=== PATIENT | male | born 1945 | race Caucasian/White ===

== ENCOUNTER 2021-05-18 09:19 | Inpatient (IN) ==
[2021-05-18] MEDS ORDERED: methylPREDNISolone SOD SUC 125 MG/2 ML VIAL IV STA (09:29)
[2021-05-18] MEDS ORDERED: MIDAZOLAM 2 MG/2 ML VIAL IV STA (09:30)
[2021-05-18] MEDS ORDERED: ALBUTEROL NEB SOLN 5 MG/ML 20 ML/BOTTLE CONT NEB SCH (09:30)
[2021-05-18] MEDS ORDERED: MIDAZOLAM 2 MG/2 ML VIAL ONE (09:35)
[2021-05-18 09:38] LABS: Basophils # 0.2 10*3/uL (0.0-0.2); Basophils % 1.4 % (0.0-0.8); Eosinophils # 0.2 10*3/uL (0.0-0.87); Eosinophils % 1.4 % (0.00-10.9); Hematocrit 46.3 VOL% (42.0-52.0); Hemoglobin 14.2 GM/DL (14.0-18.0); Immature Granulocytes % 0.5 %; Immature Granulocytes Absolute 0.07 #; Lymphocytes # 5.6 10*3/uL (1.4-4.0); Mean Corpuscular HGB Conc 30.7 GM/DL (32-36); Mean Corpuscular Volume 94.5 FL (87-102); Mean Platelet Volume 11.7 FL (9.6-12.0); Neutrophils % 47.7 % (38.7-73.9); Red Cell Distribution Width 13.3 % (9.3-17.3); White Blood Count 13.1 T/CUMM (4-12)
[2021-05-18 09:40] LABS: Platelet Count 65 T/CUMM (130-400)
[2021-05-18 09:41] LABS: ABG Base Excess -8.7 MMOL/L (-2.5-2.5); ABG HCO3 17.6 MMOL/L (20-26); ABG PCO2 58.8 MM HG (35-48); ABG TCO2 19.1 MMOL/L (23-27)
[2021-05-18] MEDS ORDERED: MORPHINE 2 MG/1 ML SYRINGE IV STA (09:44)
[2021-05-18] MEDS ORDERED: FUROSEMIDE 40 MG/4 ML VIAL IV STA (09:44)
[2021-05-18] MEDS ORDERED: MORPHINE 4 MG/1 ML VIAL ONE (09:50)
[2021-05-18 09:51] LABS: ABG PH 7.168 (7.35-7.45)
[2021-05-18 09:53] LABS: Mucus,Urine Occasional /LPF (Occasional); RBC,Urine 48 /HPF (0-4); Squamous Epithelial Cell,Urine Occasional /HPF (0-10)
[2021-05-18 09:55] LABS: Glucose,Urine (UA) Negative (Negative); Protein,Urine 100 MG/DL; Urine Appearance Clear (Clear); Urine Color Yellow (Yellow); Urine Specific Gravity > 1.030 (1.001-1.035)
[2021-05-18 09:56] LABS: Bilirubin,Urine Negative (Negative); Blood, Urine Moderate mg/dL (Negative); Ketones,Urine Negative (Negative); Nitrite,Urine Negative (Negative); Urine Urobilinogen 0.2 EU/DL (<2.0)
[2021-05-18] MEDS: MIDAZOLAM 100 MG in SODIUM CHLORIDE 0.9% 80 ML IV PRN ×2 (10:01→22:15)
[2021-05-18] MEDS ORDERED: ROCURONIUM 100 MG/10 ML VIAL IV ONE (10:15)
[2021-05-18] MEDS ORDERED: ROCURONIUM 100 MG/10 ML VIAL IV STA (10:18)
[2021-05-18] MEDS ORDERED: SODIUM BICARBONATE 50 MEQ/50 ML SYRINGE IV ONE (10:37)
[2021-05-18] MEDS ORDERED: NOREPINEPHRINE 4 MG/4 ML VIAL IV ONE (10:37)
[2021-05-18] MEDS ORDERED: SODIUM BICARBONATE 50 MEQ/50 ML VIAL IV STA (10:38)
[2021-05-18] MEDS: NOREPINEPHRINE 8 MG in SODIUM CHLORIDE 0.9% 242 ML IV PRN (10:46)
[2021-05-18 11:08] LABS: Albumin 2.9 G/DL (3.4-5.0); Bilirubin,Total 0.5 MG/DL (0.20-1.00); Calcium 8.6 MG/DL (8.5-10.1); Potassium 3.6 MMOL/L (3.5-5.1); Total Protein 6.6 G/DL (6.4-8.2)
[2021-05-18] MEDS ORDERED: GLUCAGON 1 MG VIAL IM PRN (11:42)
[2021-05-18] MEDS ORDERED: MEPERIDINE 50 MG/1 ML VIAL IV PRN (11:51)
[2021-05-18] MEDS ORDERED: MAGNESIUM SULF RIDER 1 GM/100 ML PREMIX IV PRN (12:00)
[2021-05-18] MEDS: fentaNYL INJ 1,250 MCG in SODIUM CHLORIDE 0.9% 225 ML IV PRN ×2 (12:15→22:14)
[2021-05-18 12:23] LABS: INR 2.4; Partial Thromboplastin Time 31.3 SECS (23.8-32.1)
[2021-05-18 12:24] LABS: Bacteria,Urine Occasional /HPF (Few); Hyaline Casts,Urine 1 /LPF (0-3); Mucus,Urine Occasional /LPF (Occasional); RBC,Urine 33 /HPF (0-4)
[2021-05-18 12:26] LABS: PT Patient Result 24.7 SECS (10.5-12.0)
[2021-05-18 12:37] LABS: Bilirubin,Urine Negative (Negative); Blood, Urine Moderate mg/dL (Negative); Glucose,Urine (UA) Negative (Negative); Ketones,Urine Negative (Negative); Nitrite,Urine Negative (Negative); Protein,Urine Negative; Urine Appearance Clear (Clear); Urine Color Light Yellow (Yellow); Urine Specific Gravity >= 1.030 (1.001-1.035); Urine Urobilinogen 0.2 EU/DL (<2.0); Urine pH 6.5 (4.5-8.0)
[2021-05-18 12:53] LABS: ABG Base Excess 2.3 MMOL/L (-2.5-2.5); ABG HCO3 26.5 MMOL/L (20-26); ABG Oxygen Saturation 99.4 % (95-100); ABG PCO2 40.9 MM HG (35-48); ABG PH 7.425 (7.35-7.45); ABG TCO2 23.1 MMOL/L (23-27)
[2021-05-18] MEDS: FAMOTIDINE 20 MG/2 ML VIAL IV SCH ×2 (13:24→22:39)
[2021-05-18] MEDS: ALBUTEROL/IPRATROPIUM 3 ML NEB RESP TX SCH ×2 (13:30→18:57)
[2021-05-18] MEDS: CISATRACURIUM 10 MG/5 ML VIAL IV PRN (14:10)
[2021-05-18 14:43] LABS: Albumin 2.7 G/DL (3.4-5.0); Bilirubin,Total 0.5 MG/DL (0.20-1.00); Calcium 7.6 MG/DL (8.5-10.1); Osmolality,Calculated 283.5 MOS/KG (273-304); Potassium 3.6 MMOL/L (3.5-5.1); Total Protein 6.2 G/DL (6.4-8.2)
[2021-05-18] MEDS ORDERED: ASPIRIN CHEW 81 MG TABLET PO ONE (14:56)
[2021-05-18] MEDS: INSULIN REGULAR 100 UNIT/ML IV SCH ×3 (15:42→20:25)
[2021-05-18] MEDS: FUROSEMIDE 40 MG/4 ML VIAL IV SCH (15:42)
[2021-05-18] MEDS: MINERAL OIL/PETROLATUM OPH OINT 3.5 GM TUBE BOTH EYES SCH ×2 (15:42→20:28)
[2021-05-18] MEDS: POTASSIUM CHLORIDE RIDER 20 MEQ/100 ML PREMIX IV PRN ×2 (15:42→18:25)
[2021-05-18 17:59] LABS: Basophils % 0.3 % (0.0-0.8); Hematocrit 41.5 VOL% (42.0-52.0); Hemoglobin 13.8 GM/DL (14.0-18.0); Immature Granulocytes % 0.3 %; Immature Granulocytes Absolute 0.02 #; Lymphocytes # 0.5 10*3/uL (1.4-4.0); Lymphocytes % 7.6 % (21.2-54.2); Mean Corpuscular HGB Conc 33.3 GM/DL (32-36); Mean Platelet Volume 10.1 FL (9.6-12.0); Monocytes % 3.9 % (1.7-12.7); Neutrophils % 87.9 % (38.7-73.9); Platelet Count 173 T/CUMM (130-400); Red Blood Count 4.77 MC/CUMM (3.8-5.5); Red Cell Distribution Width 13.2 % (9.3-17.3); White Blood Count 6.2 T/CUMM (4-12)
[2021-05-18] MEDS: methylPREDNISolone SOD SUC 40 MG/1 ML VIAL IV SCH (18:03)
[2021-05-18 18:09] LABS: INR 2.5; Partial Thromboplastin Time 33.4 SECS (23.8-32.1)
[2021-05-18 18:11] LABS: PT Patient Result 26.3 SECS (10.5-12.0)
[2021-05-18 18:13] LABS: Calcium 7.9 MG/DL (8.5-10.1); Osmolality,Calculated 278.8 MOS/KG (273-304); Potassium 2.8 MMOL/L (3.5-5.1)
[2021-05-18 23:16] LABS: Bilirubin,Urine Negative (Negative); Blood, Urine Large mg/dL (Negative); Glucose,Urine (UA) Negative (Negative); Hyaline Casts,Urine 3 /LPF (0-3); Ketones,Urine Negative (Negative); Mucus,Urine Occasional /LPF (Occasional); Nitrite,Urine Negative (Negative); Protein,Urine Trace MG/DL; RBC,Urine 76 /HPF (0-4); Squamous Epithelial Cell,Urine Occasional /HPF (0-10); Urine Appearance CLEAR (Clear); Urine Color Yellow (Yellow); Urine Specific Gravity 1.025 (1.001-1.035); Urine Urobilinogen 0.2 EU/DL (<2.0); Urine pH 5.5 (4.5-8.0)
[2021-05-19 00:27] LABS: INR 2.5; Partial Thromboplastin Time 34.7 SECS (23.8-32.1)
[2021-05-19 00:29] LABS: PT Patient Result 25.9 SECS (10.5-12.0)
[2021-05-19] MEDS: INSULIN REGULAR 100 UNIT/ML IV SCH ×8 (00:36→22:34)
[2021-05-19 00:39] LABS: Basophils % 0.2 % (0.0-0.8); Hematocrit 41.3 VOL% (42.0-52.0); Hemoglobin 13.8 GM/DL (14.0-18.0); Immature Granulocytes % 1.4 %; Immature Granulocytes Absolute 0.06 #; Lymphocytes # 0.5 10*3/uL (1.4-4.0); Lymphocytes % 11.3 % (21.2-54.2); Mean Corpuscular HGB Conc 33.4 GM/DL (32-36); Mean Corpuscular Volume 86.9 FL (87-102); Mean Platelet Volume 10.4 FL (9.6-12.0); Monocytes % 2.9 % (1.7-12.7); Neutrophils % 84.2 % (38.7-73.9); Platelet Count 166 T/CUMM (130-400); Red Blood Count 4.75 MC/CUMM (3.8-5.5); Red Cell Distribution Width 13.1 % (9.3-17.3); White Blood Count 4.4 T/CUMM (4-12)
[2021-05-19] MEDS: ALBUTEROL/IPRATROPIUM 3 ML NEB RESP TX SCH ×4 (00:45→19:48)
[2021-05-19 01:13] LABS: Calcium 7.7 MG/DL (8.5-10.1); Osmolality,Calculated 281.5 MOS/KG (273-304); Potassium 3.2 MMOL/L (3.5-5.1)
[2021-05-19] MEDS: methylPREDNISolone SOD SUC 40 MG/1 ML VIAL IV SCH ×3 (01:42→18:04)
[2021-05-19] MEDS: POTASSIUM CHLORIDE RIDER 20 MEQ/100 ML PREMIX IV PRN ×3 (01:44→12:52)
[2021-05-19 03:51] LABS: ABG Base Excess 1.8 MMOL/L (-2.5-2.5); ABG Oxygen Saturation 99.6 % (95-100); ABG PCO2 32.4 MM HG (35-48); ABG PH 7.487 (7.35-7.45); ABG TCO2 21.2 MMOL/L (23-27)
[2021-05-19] MEDS: fentaNYL INJ 1,250 MCG in SODIUM CHLORIDE 0.9% 225 ML IV PRN ×5 (03:56→23:59)
[2021-05-19 04:18] LABS: Risk Ratio 2.44; VLDL Cholesterol 13.2 MG/DL
[2021-05-19 06:25] LABS: Basophils % 0.2 % (0.0-0.8); Hematocrit 39.2 VOL% (42.0-52.0); Hemoglobin 13.1 GM/DL (14.0-18.0); Immature Granulocytes % 0.4 %; Immature Granulocytes Absolute 0.02 #; Lymphocytes # 0.6 10*3/uL (1.4-4.0); Lymphocytes % 10.4 % (21.2-54.2); Mean Corpuscular HGB Conc 33.4 GM/DL (32-36); Mean Corpuscular Volume 86.2 FL (87-102); Mean Platelet Volume 10.3 FL (9.6-12.0); Monocytes % 2.6 % (1.7-12.7); Neutrophils % 86.4 % (38.7-73.9); Platelet Count 166 T/CUMM (130-400); Red Blood Count 4.55 MC/CUMM (3.8-5.5); Red Cell Distribution Width 13.2 % (9.3-17.3); White Blood Count 5.5 T/CUMM (4-12)
[2021-05-19] MEDS: LEVOTHYROXINE 75 MCG TABLET PO SCH (06:31)
[2021-05-19 06:36] LABS: INR 2.7; Partial Thromboplastin Time 35.9 SECS (23.8-32.1)
[2021-05-19 06:37] LABS: Calcium 7.6 MG/DL (8.5-10.1); Osmolality,Calculated 284.4 MOS/KG (273-304); Potassium 3.3 MMOL/L (3.5-5.1)
[2021-05-19 06:46] LABS: PT Patient Result 28.1 SECS (10.5-12.0)
[2021-05-19] MEDS: MIDAZOLAM 100 MG in SODIUM CHLORIDE 0.9% 80 ML IV PRN ×2 (08:00→17:30)
[2021-05-19] MEDS: FUROSEMIDE 40 MG/4 ML VIAL IV SCH ×2 (08:55→16:03)
[2021-05-19] MEDS: MINERAL OIL/PETROLATUM OPH OINT 3.5 GM TUBE BOTH EYES SCH ×3 (09:10→21:07)
[2021-05-19] MEDS: ASPIRIN CHEW 81 MG TABLET PO SCH (09:10)
[2021-05-19] MEDS: FAMOTIDINE 20 MG/2 ML VIAL IV SCH ×2 (10:06→22:45)
[2021-05-19 11:18] LABS: Basophils % 0.2 % (0.0-0.8); Hematocrit 39.4 VOL% (42.0-52.0); Immature Granulocytes % 0.3 %; Immature Granulocytes Absolute 0.02 #; Lymphocytes # 0.5 10*3/uL (1.4-4.0); Lymphocytes % 8.8 % (21.2-54.2); Mean Corpuscular Volume 86.4 FL (87-102); Mean Platelet Volume 10.2 FL (9.6-12.0); Monocytes % 3.6 % (1.7-12.7); Neutrophils % 87.1 % (38.7-73.9); Platelet Count 178 T/CUMM (130-400); Red Blood Count 4.56 MC/CUMM (3.8-5.5); Red Cell Distribution Width 13.2 % (9.3-17.3); White Blood Count 5.9 T/CUMM (4-12)
[2021-05-19 11:30] LABS: INR 2.9; Partial Thromboplastin Time 37.5 SECS (23.8-32.1)
[2021-05-19 12:02] LABS: PT Patient Result 30.4 SECS (10.5-12.0)
[2021-05-19 12:06] LABS: Calcium 7.6 MG/DL (8.5-10.1); Osmolality,Calculated 284.4 MOS/KG (273-304); Potassium 3.3 MMOL/L (3.5-5.1)
[2021-05-19] MEDS ORDERED: POTASSIUM CHLORIDE RIDER 10 MEQ/100 ML PREMIX IV PRN (16:00)
[2021-05-19 17:42] LABS: Basophils % 0.1 % (0.0-0.8); Hematocrit 37.9 VOL% (42.0-52.0); Hemoglobin 12.6 GM/DL (14.0-18.0); Immature Granulocytes % 0.3 %; Immature Granulocytes Absolute 0.02 #; Lymphocytes # 0.6 10*3/uL (1.4-4.0); Lymphocytes % 8.5 % (21.2-54.2); Mean Corpuscular HGB Conc 33.2 GM/DL (32-36); Mean Corpuscular Volume 86.1 FL (87-102); Mean Platelet Volume 10.4 FL (9.6-12.0); Monocytes % 3.3 % (1.7-12.7); Neutrophils % 87.8 % (38.7-73.9); Platelet Count 168 T/CUMM (130-400); Red Cell Distribution Width 13.2 % (9.3-17.3); White Blood Count 7.3 T/CUMM (4-12)
[2021-05-19 17:52] LABS: INR 3.2; Partial Thromboplastin Time 38.6 SECS (23.8-32.1)
[2021-05-19 17:53] LABS: PT Patient Result 33.1 SECS (10.5-12.0)
[2021-05-19 18:10] LABS: Osmolality,Calculated 285.4 MOS/KG (273-304); Potassium 3.4 MMOL/L (3.5-5.1)
[2021-05-19 18:44] LABS: Albumin 2.4 G/DL (3.4-5.0); Bilirubin,Direct 0.11 MG/DL (0.0-0.20); Bilirubin,Indirect 0.4 MG/DL (0.0-1.0); Bilirubin,Total 0.5 MG/DL (0.20-1.00); Total Protein 5.5 G/DL (6.4-8.2)
[2021-05-19] MEDS: CISATRACURIUM 10 MG/5 ML VIAL IV PRN (22:49)
[2021-05-20] MEDS: INSULIN REGULAR 100 UNIT/ML IV SCH ×3 (00:21→05:21)
[2021-05-20 00:29] LABS: INR 3.3; Partial Thromboplastin Time 37.9 SECS (23.8-32.1)
[2021-05-20] MEDS: ALBUTEROL/IPRATROPIUM 3 ML NEB RESP TX SCH ×4 (00:30→19:37)
[2021-05-20 00:31] LABS: PT Patient Result 34.3 SECS (10.5-12.0)
[2021-05-20 00:40] LABS: Basophils % 0.1 % (0.0-0.8); Hematocrit 41.3 VOL% (42.0-52.0); Hemoglobin 13.6 GM/DL (14.0-18.0); Immature Granulocytes % 0.5 %; Immature Granulocytes Absolute 0.06 #; Lymphocytes # 0.7 10*3/uL (1.4-4.0); Lymphocytes % 6.4 % (21.2-54.2); Mean Corpuscular HGB Conc 32.9 GM/DL (32-36); Mean Corpuscular Volume 87.3 FL (87-102); Mean Platelet Volume 10.6 FL (9.6-12.0); Monocytes % 3.5 % (1.7-12.7); Neutrophils % 89.5 % (38.7-73.9); Platelet Count 199 T/CUMM (130-400); Red Blood Count 4.73 MC/CUMM (3.8-5.5); Red Cell Distribution Width 13.3 % (9.3-17.3); White Blood Count 11.6 T/CUMM (4-12)
[2021-05-20 01:40] LABS: Calcium 7.9 MG/DL (8.5-10.1); Osmolality,Calculated 287.4 MOS/KG (273-304); Potassium 3.4 MMOL/L (3.5-5.1)
[2021-05-20] MEDS: fentaNYL INJ 1,250 MCG in SODIUM CHLORIDE 0.9% 225 ML IV PRN ×6 (01:50→23:00)
[2021-05-20 02:27] LABS: ABG Base Excess 1.3 MMOL/L (-2.5-2.5); ABG HCO3 25.6 MMOL/L (20-26); ABG Oxygen Saturation 99.6 % (95-100); ABG PCO2 34.1 MM HG (35-48); ABG PH 7.463 (7.35-7.45); ABG TCO2 21.2 MMOL/L (23-27)
[2021-05-20 02:30] LABS: Basophils % 0.1 % (0.0-0.8); Hematocrit 38.2 VOL% (42.0-52.0); Hemoglobin 12.6 GM/DL (14.0-18.0); Immature Granulocytes % 0.4 %; Immature Granulocytes Absolute 0.05 #; Lymphocytes # 0.5 10*3/uL (1.4-4.0); Lymphocytes % 4.3 % (21.2-54.2); Mean Platelet Volume 10.4 FL (9.6-12.0); Monocytes % 3.3 % (1.7-12.7); Neutrophils % 91.9 % (38.7-73.9); Platelet Count 213 T/CUMM (130-400); Red Blood Count 4.39 MC/CUMM (3.8-5.5); Red Cell Distribution Width 13.5 % (9.3-17.3); White Blood Count 11.8 T/CUMM (4-12)
[2021-05-20] MEDS: methylPREDNISolone SOD SUC 40 MG/1 ML VIAL IV SCH ×2 (02:38→15:28)
[2021-05-20 02:40] LABS: INR 3.6; Partial Thromboplastin Time 39.6 SECS (23.8-32.1)
[2021-05-20 02:41] LABS: PT Patient Result 37.4 SECS (10.5-12.0)
[2021-05-20 02:50] LABS: Alanine Aminotransferase 22 U/L (16-61); Albumin 2.2 G/DL (3.4-5.0); Alkaline Phosphatase 66 U/L (45-117); Aspartate Amino Transferase 21 U/L (0-37); Blood Urea Nitrogen 25 MG/DL (7-18); Calcium 7.2 MG/DL (8.5-10.1); Carbon Dioxide 25 MMOL/L (21-32); Estimated Glom Filtration Rate 84 ML/MIN; Glucose 178 MG/DL (74-106); Osmolality,Calculated 290.1 MOS/KG (273-304); Potassium 3.5 MMOL/L (3.5-5.1); Sodium 142 MMOL/L (136-145); Total Protein 5.3 G/DL (6.4-8.2)
[2021-05-20 02:55] LABS: Lymphocytes 5 % (20-55); Platelet Estimate Adequate; Segmented Neutrophils 93 % (50-85); Total Cells Counted 100
[2021-05-20] MEDS: MIDAZOLAM 100 MG in SODIUM CHLORIDE 0.9% 80 ML IV PRN ×2 (03:20→14:13)
[2021-05-20] MEDS: INSULIN REGULAR 100 UNIT/ML SUBCUT SCH ×6 (04:24→23:36)
[2021-05-20] MEDS ORDERED: MAGNESIUM SULF RIDER 2 GM/50 ML PREMIX IV PRN (04:35)
[2021-05-20] MEDS: POTASSIUM CHLORIDE RIDER 20 MEQ/100 ML PREMIX IV PRN (04:57)
[2021-05-20 05:49] LABS: Basophils % 0.1 % (0.0-0.8); Hematocrit 38.8 VOL% (42.0-52.0); Hemoglobin 12.6 GM/DL (14.0-18.0); Immature Granulocytes % 0.5 %; Immature Granulocytes Absolute 0.07 #; Lymphocytes # 0.5 10*3/uL (1.4-4.0); Lymphocytes % 3.6 % (21.2-54.2); Mean Corpuscular HGB Conc 32.5 GM/DL (32-36); Mean Corpuscular Volume 88.8 FL (87-102); Mean Platelet Volume 10.3 FL (9.6-12.0); Monocytes % 2.9 % (1.7-12.7); Neutrophils % 92.9 % (38.7-73.9); Platelet Count 225 T/CUMM (130-400); Red Blood Count 4.37 MC/CUMM (3.8-5.5); Red Cell Distribution Width 13.7 % (9.3-17.3); White Blood Count 12.9 T/CUMM (4-12)
[2021-05-20 06:01] LABS: INR 3.6; Partial Thromboplastin Time 40.2 SECS (23.8-32.1)
[2021-05-20 06:02] LABS: PT Patient Result 36.7 SECS (10.5-12.0)
[2021-05-20] MEDS: LEVOTHYROXINE 75 MCG TABLET PO SCH (06:38)
[2021-05-20 06:40] LABS: Calcium 7.3 MG/DL (8.5-10.1); Osmolality,Calculated 290.3 MOS/KG (273-304); Potassium 4.4 MMOL/L (3.5-5.1)
[2021-05-20] MEDS: NOREPINEPHRINE 8 MG in SODIUM CHLORIDE 0.9% 242 ML IV PRN (07:30)
[2021-05-20 08:05] LABS: Lymphocytes 2 % (20-55); Segmented Neutrophils 97 % (50-85); Total Cells Counted 100
[2021-05-20 08:06] LABS: Platelet Estimate Normal; Polychromasia Slight
[2021-05-20] MEDS: ASPIRIN CHEW 81 MG TABLET PO SCH (09:00)
[2021-05-20] MEDS ORDERED: ALBUMIN 25% 25 GM/100 ML VIAL IV ONE (09:25)
[2021-05-20] MEDS ORDERED: ALBUMIN 5% 25.0 GM/500 ML VIAL IV ONE (09:42)
[2021-05-20] MEDS: ALBUMIN 5% 25 GM/500 ML VIAL IV SCH ×2 (10:02→18:08)
[2021-05-20] MEDS: MINERAL OIL/PETROLATUM OPH OINT 3.5 GM TUBE BOTH EYES SCH ×2 (10:02→15:29)
[2021-05-20] MEDS: FAMOTIDINE 20 MG/2 ML VIAL IV SCH ×2 (12:20→23:28)
[2021-05-20 15:34] LABS: Basophils % 0.1 % (0.0-0.8); Calcium 7.3 MG/DL (8.5-10.1); Hematocrit 35.5 VOL% (42.0-52.0); Hemoglobin 11.4 GM/DL (14.0-18.0); Immature Granulocytes % 0.5 %; Immature Granulocytes Absolute 0.06 #; Lymphocytes # 0.5 10*3/uL (1.4-4.0); Lymphocytes % 4.3 % (21.2-54.2); Mean Corpuscular HGB Conc 32.1 GM/DL (32-36); Mean Corpuscular Volume 89.4 FL (87-102); Mean Platelet Volume 10.2 FL (9.6-12.0); Monocytes % 5.4 % (1.7-12.7); Neutrophils % 89.7 % (38.7-73.9); Platelet Count 196 T/CUMM (130-400); Red Blood Count 3.97 MC/CUMM (3.8-5.5); Red Cell Distribution Width 13.7 % (9.3-17.3); White Blood Count 10.9 T/CUMM (4-12)
[2021-05-20 15:49] LABS: INR 4.2
[2021-05-20 15:55] LABS: PT Patient Result 42.6 SECS (10.5-12.0); Partial Thromboplastin Time 42.5 SECS (23.8-32.1)
[2021-05-20 16:42] LABS: Band Neutrophils 1 % (0-10); Lymphocytes 3 % (20-55); Segmented Neutrophils 87 % (50-85); Total Cells Counted 100
[2021-05-20 16:43] LABS: Hypochromia Slight; Ovalocytes Few; Platelet Estimate Normal
[2021-05-20] MEDS ORDERED: MINERAL OIL/PETROLATUM OPH OINT 3.5 GM TUBE BOTH EYES PRN (18:46)
[2021-05-20] MEDS: LACTATED RINGERS 1,000 ML IV SCH (18:52)
[2021-05-21] MEDS: MIDAZOLAM 100 MG in SODIUM CHLORIDE 0.9% 80 ML IV PRN ×3 (00:49→23:43)
[2021-05-21] MEDS ORDERED: LACTATED RINGERS 500 ML IV ONE (00:55)
[2021-05-21] MEDS: ALBUTEROL/IPRATROPIUM 3 ML NEB RESP TX SCH ×4 (01:14→18:10)
[2021-05-21] MEDS: fentaNYL INJ 1,250 MCG in SODIUM CHLORIDE 0.9% 225 ML IV PRN ×5 (02:26→22:30)
[2021-05-21] MEDS: methylPREDNISolone SOD SUC 40 MG/1 ML VIAL IV SCH ×2 (02:30→14:10)
[2021-05-21 04:41] LABS: ABG Base Excess 0.9 MMOL/L (-2.5-2.5); ABG HCO3 25.1 MMOL/L (20-26); ABG Oxygen Saturation 92.9 % (95-100); ABG PCO2 34.2 MM HG (35-48); ABG PH 7.458 (7.35-7.45); ABG TCO2 21.4 MMOL/L (23-27)
[2021-05-21 04:43] LABS: Hematocrit 34.1 VOL% (42.0-52.0); Immature Granulocytes % 0.2 %; Immature Granulocytes Absolute 0.01 #; Lymphocytes # 0.3 10*3/uL (1.4-4.0); Lymphocytes % 5.4 % (21.2-54.2); Mean Corpuscular HGB Conc 32.3 GM/DL (32-36); Mean Corpuscular Volume 90.5 FL (87-102); Mean Platelet Volume 10.5 FL (9.6-12.0); Monocytes % 6.8 % (1.7-12.7); Neutrophils % 87.6 % (38.7-73.9); Platelet Count 157 T/CUMM (130-400); Red Blood Count 3.77 MC/CUMM (3.8-5.5); Red Cell Distribution Width 13.9 % (9.3-17.3); White Blood Count 5.9 T/CUMM (4-12)
[2021-05-21 04:52] LABS: Calcium 7.5 MG/DL (8.5-10.1); Osmolality,Calculated 295.8 MOS/KG (273-304)
[2021-05-21 05:08] LABS: Hypochromia Slight; Lymphocytes 9 % (20-55); Microcytosis Slight; Platelet Estimate Adequate; Segmented Neutrophils 89 % (50-85); Total Cells Counted 100
[2021-05-21] MEDS: LEVOTHYROXINE 75 MCG TABLET PO SCH (06:30)
[2021-05-21] MEDS: INSULIN REGULAR 100 UNIT/ML SUBCUT SCH ×5 (06:38→20:53)
[2021-05-21] MEDS: LACTATED RINGERS 1,000 ML IV SCH ×2 (07:00→09:20)
[2021-05-21] MEDS: ASPIRIN CHEW 81 MG TABLET PO SCH (08:20)
[2021-05-21] MEDS: FUROSEMIDE 40 MG/4 ML VIAL IV SCH ×2 (10:20→21:42)
[2021-05-21 10:32] LABS: INR 4.3; PT Patient Result 43.4 SECS (10.5-12.0)
[2021-05-21] MEDS: FAMOTIDINE 20 MG/2 ML VIAL IV SCH ×2 (10:50→23:28)
[2021-05-21] MEDS: SACUBITRIL/VALSARTAN 49-51 MG TABLET PO SCH ×2 (11:10→21:41)
[2021-05-21] MEDS: carvediloL 3.125 MG TABLET PO SCH ×2 (11:10→21:41)
[2021-05-21] MEDS: CISATRACURIUM 10 MG/5 ML VIAL IV PRN (16:50)
[2021-05-22] MEDS: INSULIN REGULAR 100 UNIT/ML SUBCUT SCH ×6 (00:32→21:04)
[2021-05-22] MEDS: ALBUTEROL/IPRATROPIUM 3 ML NEB RESP TX SCH ×4 (01:19→20:10)
[2021-05-22] MEDS: methylPREDNISolone SOD SUC 40 MG/1 ML VIAL IV SCH ×2 (02:34→15:40)
[2021-05-22] MEDS: fentaNYL INJ 1,250 MCG in SODIUM CHLORIDE 0.9% 225 ML IV PRN ×5 (02:49→21:51)
[2021-05-22 05:00] LABS: ABG Base Excess 2.5 MMOL/L (-2.5-2.5); ABG HCO3 26.6 MMOL/L (20-26); ABG Oxygen Saturation 94.8 % (95-100); ABG PCO2 43.3 MM HG (35-48); ABG PH 7.411 (7.35-7.45); ABG PO2 76.3 MM HG (80-95); ABG TCO2 24.4 MMOL/L (23-27)
[2021-05-22 05:24] LABS: Hematocrit 36.8 VOL% (42.0-52.0); Hemoglobin 11.5 GM/DL (14.0-18.0); Immature Granulocytes % 0.8 %; Immature Granulocytes Absolute 0.07 #; Lymphocytes # 0.3 10*3/uL (1.4-4.0); Lymphocytes % 3.9 % (21.2-54.2); Mean Corpuscular HGB Conc 31.3 GM/DL (32-36); Mean Corpuscular Volume 91.8 FL (87-102); Mean Platelet Volume 10.5 FL (9.6-12.0); Monocytes % 4.8 % (1.7-12.7); Neutrophils % 90.5 % (38.7-73.9); Platelet Count 153 T/CUMM (130-400); Red Blood Count 4.01 MC/CUMM (3.8-5.5); White Blood Count 8.7 T/CUMM (4-12)
[2021-05-22 05:26] LABS: Calcium 7.5 MG/DL (8.5-10.1); INR 4.4; Osmolality,Calculated 296.1 MOS/KG (273-304)
[2021-05-22 05:30] LABS: PT Patient Result 44.6 SECS (10.5-12.0)
[2021-05-22 05:55] LABS: Hypochromia Slight; Lymphocytes 6 % (20-55); Microcytosis Slight; Platelet Estimate Adequate; Segmented Neutrophils 90 % (50-85); Total Cells Counted 100
[2021-05-22] MEDS: LEVOTHYROXINE 75 MCG TABLET PO SCH (06:38)
[2021-05-22] MEDS: SACUBITRIL/VALSARTAN 49-51 MG TABLET PO SCH ×2 (08:25→21:52)
[2021-05-22] MEDS: carvediloL 3.125 MG TABLET PO SCH ×2 (08:25→21:52)
[2021-05-22] MEDS: ASPIRIN CHEW 81 MG TABLET PO SCH (08:25)
[2021-05-22] MEDS ORDERED: INSULIN GLARGINE 100 UNIT/ML SUBCUT SCH (09:00)
[2021-05-22] MEDS: FUROSEMIDE 40 MG/4 ML VIAL IV SCH ×2 (11:05→21:52)
[2021-05-22] MEDS: FAMOTIDINE 20 MG/2 ML VIAL IV SCH ×2 (11:05→23:43)
[2021-05-22] MEDS: MIDAZOLAM 100 MG in SODIUM CHLORIDE 0.9% 80 ML IV PRN (12:15)
[2021-05-22] MEDS: LACTATED RINGERS 1,000 ML IV SCH (15:40)
[2021-05-22] MEDS: SIMVASTATIN 20 MG TABLET PO SCH (21:52)
[2021-05-23] MEDS: INSULIN REGULAR 100 UNIT/ML SUBCUT SCH ×6 (00:51→20:45)
[2021-05-23] MEDS: ALBUTEROL/IPRATROPIUM 3 ML NEB RESP TX SCH ×4 (01:38→20:21)
[2021-05-23] MEDS: MIDAZOLAM 100 MG in SODIUM CHLORIDE 0.9% 80 ML IV PRN ×2 (02:08→14:06)
[2021-05-23] MEDS: methylPREDNISolone SOD SUC 40 MG/1 ML VIAL IV SCH (02:11)
[2021-05-23] MEDS: fentaNYL INJ 1,250 MCG in SODIUM CHLORIDE 0.9% 225 ML IV PRN ×5 (02:21→20:17)
[2021-05-23 04:32] LABS: ABG Base Excess 4.9 MMOL/L (-2.5-2.5); ABG HCO3 28.9 MMOL/L (20-26); ABG Oxygen Saturation 99.6 % (95-100); ABG PCO2 44.2 MM HG (35-48); ABG PH 7.436 (7.35-7.45); ABG TCO2 26.4 MMOL/L (23-27)
[2021-05-23 04:38] LABS: Basophils % 0.1 % (0.0-0.8); Hematocrit 36.2 VOL% (42.0-52.0); Hemoglobin 11.3 GM/DL (14.0-18.0); Immature Granulocytes % 0.9 %; Immature Granulocytes Absolute 0.07 #; Lymphocytes # 0.4 10*3/uL (1.4-4.0); Lymphocytes % 5.3 % (21.2-54.2); Mean Corpuscular HGB Conc 31.2 GM/DL (32-36); Mean Corpuscular Volume 91.6 FL (87-102); Mean Platelet Volume 10.6 FL (9.6-12.0); Monocytes % 6.6 % (1.7-12.7); Neutrophils % 87.1 % (38.7-73.9); Platelet Count 162 T/CUMM (130-400); Red Blood Count 3.95 MC/CUMM (3.8-5.5); Red Cell Distribution Width 13.9 % (9.3-17.3); White Blood Count 8.1 T/CUMM (4-12)
[2021-05-23 04:50] LABS: Calcium 7.3 MG/DL (8.5-10.1); Osmolality,Calculated 305.4 MOS/KG (273-304); Potassium 4.1 MMOL/L (3.5-5.1)
[2021-05-23 04:56] LABS: INR 2.8; PT Patient Result 29.3 SECS (10.5-12.0)
[2021-05-23 05:04] LABS: Hypochromia Slight; Lymphocytes 6 % (20-55); Microcytosis Slight; Platelet Estimate Adequate; Segmented Neutrophils 90 % (50-85); Total Cells Counted 100
[2021-05-23] MEDS: LEVOTHYROXINE 75 MCG TABLET PO SCH (07:00)
[2021-05-23] MEDS: SACUBITRIL/VALSARTAN 49-51 MG TABLET PO SCH ×2 (08:21→20:45)
[2021-05-23] MEDS: ASPIRIN CHEW 81 MG TABLET PO SCH (08:21)
[2021-05-23] MEDS: INSULIN GLARGINE 100 UNIT/ML SUBCUT SCH (08:22)
[2021-05-23] MEDS: carvediloL 3.125 MG TABLET PO SCH ×2 (08:22→20:45)
[2021-05-23] MEDS: FUROSEMIDE 40 MG/4 ML VIAL IV SCH ×2 (08:27→16:40)
[2021-05-23] MEDS: methylPREDNISolone SOD SUC 125 MG/2 ML VIAL IV SCH ×2 (10:51→21:32)
[2021-05-23] MEDS: FAMOTIDINE 20 MG/2 ML VIAL IV SCH ×2 (10:52→22:04)
[2021-05-23] MEDS: LACTATED RINGERS 1,000 ML IV SCH (20:20)
[2021-05-23] MEDS: SIMVASTATIN 20 MG TABLET PO SCH (20:45)
[2021-05-24] MEDS: ALBUTEROL/IPRATROPIUM 3 ML NEB RESP TX SCH ×4 (00:34→18:52)
[2021-05-24] MEDS: fentaNYL INJ 1,250 MCG in SODIUM CHLORIDE 0.9% 225 ML IV PRN ×5 (00:56→21:07)
[2021-05-24] MEDS: MIDAZOLAM 100 MG in SODIUM CHLORIDE 0.9% 80 ML IV PRN ×2 (01:38→15:39)
[2021-05-24 03:40] LABS: ABG Base Excess 7.2 MMOL/L (-2.5-2.5); ABG Oxygen Saturation 98.1 % (95-100); ABG PCO2 46.3 MM HG (35-48); ABG PH 7.451 (7.35-7.45); ABG TCO2 28.3 MMOL/L (23-27)
[2021-05-24 03:53] LABS: Basophils % 0.2 % (0.0-0.8); Hematocrit 39.2 VOL% (42.0-52.0); Hemoglobin 12.2 GM/DL (14.0-18.0); Immature Granulocytes % 0.9 %; Immature Granulocytes Absolute 0.09 #; Lymphocytes # 0.4 10*3/uL (1.4-4.0); Mean Corpuscular HGB Conc 31.1 GM/DL (32-36); Mean Corpuscular Volume 91.6 FL (87-102); Mean Platelet Volume 10.7 FL (9.6-12.0); Monocytes % 7.8 % (1.7-12.7); Neutrophils % 87.1 % (38.7-73.9); Platelet Count 191 T/CUMM (130-400); Red Blood Count 4.28 MC/CUMM (3.8-5.5)
[2021-05-24 04:02] LABS: INR 1.9; PT Patient Result 20.7 SECS (10.5-12.0)
[2021-05-24 04:05] LABS: Calcium 7.7 MG/DL (8.5-10.1); Potassium 3.5 MMOL/L (3.5-5.1)
[2021-05-24 04:21] LABS: Osmolality,Calculated 307.7 MOS/KG (273-304)
[2021-05-24 04:39] LABS: Hypochromia Slight; Lymphocytes 5 % (20-55); Microcytosis Slight; Platelet Estimate Adequate; Segmented Neutrophils 90 % (50-85); Total Cells Counted 100
[2021-05-24] MEDS: INSULIN REGULAR 100 UNIT/ML SUBCUT SCH ×6 (04:45→20:25)
[2021-05-24] MEDS: LEVOTHYROXINE 75 MCG TABLET PO SCH (06:00)
[2021-05-24] MEDS: FUROSEMIDE 40 MG/4 ML VIAL IV SCH ×3 (08:10→16:10)
[2021-05-24] MEDS: SACUBITRIL/VALSARTAN 49-51 MG TABLET PO SCH ×2 (10:30→20:25)
[2021-05-24] MEDS: carvediloL 3.125 MG TABLET PO SCH (10:30)
[2021-05-24] MEDS: ASPIRIN CHEW 81 MG TABLET PO SCH (10:37)
[2021-05-24] MEDS: INSULIN GLARGINE 100 UNIT/ML SUBCUT SCH (10:37)
[2021-05-24] MEDS: POTASSIUM CHLORIDE 20 MEQ TABLET PO SCH ×3 (10:37→18:30)
[2021-05-24] MEDS: methylPREDNISolone SOD SUC 125 MG/2 ML VIAL IV SCH ×2 (10:41→22:10)
[2021-05-24] MEDS: FAMOTIDINE 20 MG/2 ML VIAL IV SCH ×2 (10:41→22:11)
[2021-05-24] MEDS: cefTRIAXone 1,000 MG in SODIUM CHLORIDE 0.9% 100 ML IV SCH (10:48)
[2021-05-24] MEDS: SPIRONOLACTONE 25 MG TABLET PO SCH (11:01)
[2021-05-24 13:26] LABS: M. Tuberculosis PCR Result Negative (Negative)
[2021-05-24] MEDS ORDERED: NOREPINEPHRINE 4 MG/4 ML VIAL IV ONE (18:25)
[2021-05-24] MEDS: carvediloL 6.25 MG TABLET PO SCH (20:25)
[2021-05-24] MEDS: SIMVASTATIN 20 MG TABLET PO SCH (20:25)
[2021-05-25] MEDS: FUROSEMIDE 40 MG/4 ML VIAL IV SCH (00:20)
[2021-05-25] MEDS: INSULIN REGULAR 100 UNIT/ML SUBCUT SCH ×6 (00:20→20:30)
[2021-05-25] MEDS: ALBUTEROL/IPRATROPIUM 3 ML NEB RESP TX SCH ×4 (00:26→19:13)
[2021-05-25] MEDS: fentaNYL INJ 1,250 MCG in SODIUM CHLORIDE 0.9% 225 ML IV PRN ×4 (02:35→18:15)
[2021-05-25 04:04] LABS: ABG Base Excess 8.4 MMOL/L (-2.5-2.5); ABG HCO3 33.4 MMOL/L (20-26); ABG Oxygen Saturation 98.9 % (95-100); ABG PCO2 47.6 MM HG (35-48); ABG PH 7.464 (7.35-7.45); ABG PO2 165.2 MM HG (80-95); ABG TCO2 34.9 MMOL/L (23-27)
[2021-05-25 04:23] LABS: Basophils % 0.1 % (0.0-0.8); Hematocrit 41.7 VOL% (42.0-52.0); Hemoglobin 12.8 GM/DL (14.0-18.0); Immature Granulocytes % 1.4 %; Lymphocytes # 0.5 10*3/uL (1.4-4.0); Lymphocytes % 3.3 % (21.2-54.2); Mean Corpuscular HGB Conc 30.7 GM/DL (32-36); Mean Corpuscular Volume 93.1 FL (87-102); Mean Platelet Volume 10.4 FL (9.6-12.0); Monocytes % 5.5 % (1.7-12.7); Neutrophils % 89.7 % (38.7-73.9); Platelet Count 204 T/CUMM (130-400); Red Blood Count 4.48 MC/CUMM (3.8-5.5); White Blood Count 14.8 T/CUMM (4-12)
[2021-05-25 04:29] LABS: INR 1.5; PT Patient Result 16.4 SECS (10.5-12.0)
[2021-05-25 04:40] LABS: Albumin 2.1 G/DL (3.4-5.0); Bilirubin,Total 0.5 MG/DL (0.20-1.00); Calcium 7.9 MG/DL (8.5-10.1); Total Protein 5.5 G/DL (6.4-8.2)
[2021-05-25 04:46] LABS: Osmolality,Calculated 312.8 MOS/KG (273-304); Potassium 3.9 MMOL/L (3.5-5.1)
[2021-05-25] MEDS: LEVOTHYROXINE 75 MCG TABLET PO SCH (06:08)
[2021-05-25 06:40] LABS: Band Neutrophils 6 % (0-10); Lymphocytes 3 % (20-55); Metamyelocytes 1 %; Platelet Estimate Normal; Segmented Neutrophils 86 % (50-85); Total Cells Counted 100
[2021-05-25 06:41] LABS: Macrocytosis Slight
[2021-05-25] MEDS: SPIRONOLACTONE 25 MG TABLET PO SCH (09:00)
[2021-05-25] MEDS: ASPIRIN CHEW 81 MG TABLET PO SCH (09:00)
[2021-05-25] MEDS: INSULIN GLARGINE 100 UNIT/ML SUBCUT SCH ×2 (09:00→11:00)
[2021-05-25] MEDS: carvediloL 6.25 MG TABLET PO SCH ×2 (09:00→20:30)
[2021-05-25] MEDS: cefTRIAXone 1,000 MG in SODIUM CHLORIDE 0.9% 100 ML IV SCH (09:00)
[2021-05-25] MEDS: SACUBITRIL/VALSARTAN 49-51 MG TABLET PO SCH ×2 (09:00→20:30)
[2021-05-25] MEDS: FAMOTIDINE 20 MG/2 ML VIAL IV SCH ×2 (11:00→22:10)
[2021-05-25] MEDS: methylPREDNISolone SOD SUC 125 MG/2 ML VIAL IV SCH ×2 (11:00→22:10)
[2021-05-25] MEDS: ENOXAPARIN 40 MG/0.4 ML SYRINGE SUBCUT SCH (11:00)
[2021-05-25] MEDS: MIDAZOLAM 100 MG in SODIUM CHLORIDE 0.9% 80 ML IV PRN (11:30)
[2021-05-25] MEDS: SIMVASTATIN 20 MG TABLET PO SCH (20:30)
[2021-05-25] MEDS: hydrALAZINE 20 MG/1 ML VIAL IV PRN (22:38)
[2021-05-26] MEDS: INSULIN REGULAR 100 UNIT/ML SUBCUT SCH ×4 (00:17→18:00)
[2021-05-26] MEDS: fentaNYL INJ 1,250 MCG in SODIUM CHLORIDE 0.9% 225 ML IV PRN ×6 (00:56→22:50)
[2021-05-26] MEDS: ALBUTEROL/IPRATROPIUM 3 ML NEB RESP TX SCH ×4 (01:02→19:08)
[2021-05-26 04:14] LABS: ABG Base Excess 6.9 MMOL/L (-2.5-2.5); ABG HCO3 30.7 MMOL/L (20-26); ABG Oxygen Saturation 97.5 % (95-100); ABG PCO2 46.4 MM HG (35-48); ABG PH 7.447 (7.35-7.45); ABG PO2 98.9 MM HG (80-95); ABG TCO2 28.2 MMOL/L (23-27)
[2021-05-26 04:20] LABS: Basophils % 0.1 % (0.0-0.8); Hematocrit 41.9 VOL% (42.0-52.0); Hemoglobin 12.7 GM/DL (14.0-18.0); Immature Granulocytes % 1.4 %; Lymphocytes # 0.6 10*3/uL (1.4-4.0); Lymphocytes % 2.9 % (21.2-54.2); Mean Corpuscular HGB Conc 30.3 GM/DL (32-36); Mean Corpuscular Volume 93.9 FL (87-102); Mean Platelet Volume 10.5 FL (9.6-12.0); Monocytes % 5.2 % (1.7-12.7); Neutrophils % 90.4 % (38.7-73.9); Platelet Count 214 T/CUMM (130-400); Red Blood Count 4.46 MC/CUMM (3.8-5.5); Red Cell Distribution Width 14.2 % (9.3-17.3)
[2021-05-26 04:36] LABS: Calcium 7.6 MG/DL (8.5-10.1); INR 1.2; Osmolality,Calculated 319.9 MOS/KG (273-304); PT Patient Result 13.1 SECS (10.5-12.0); Potassium 3.9 MMOL/L (3.5-5.1)
[2021-05-26 04:52] LABS: Hypochromia Slight; Lymphocytes 5 % (20-55); Microcytosis Slight; Platelet Estimate Adequate; Segmented Neutrophils 90 % (50-85); Total Cells Counted 100
[2021-05-26] MEDS: hydrALAZINE 20 MG/1 ML VIAL IV PRN (05:10)
[2021-05-26] MEDS: LEVOTHYROXINE 75 MCG TABLET PO SCH (06:00)
[2021-05-26] MEDS: POTASSIUM CHLORIDE 20 MEQ TABLET PO PRN (06:00)
[2021-05-26] MEDS: INSULIN GLARGINE 100 UNIT/ML SUBCUT SCH (09:15)
[2021-05-26] MEDS: cefTRIAXone 1,000 MG in SODIUM CHLORIDE 0.9% 100 ML IV SCH (09:20)
[2021-05-26] MEDS: SPIRONOLACTONE 25 MG TABLET PO SCH (09:20)
[2021-05-26] MEDS: SACUBITRIL/VALSARTAN 49-51 MG TABLET PO SCH ×2 (09:20→20:53)
[2021-05-26] MEDS: FUROSEMIDE 40 MG/4 ML VIAL IV SCH (09:20)
[2021-05-26] MEDS: carvediloL 6.25 MG TABLET PO SCH ×2 (09:20→20:53)
[2021-05-26] MEDS: ASPIRIN CHEW 81 MG TABLET PO SCH (09:20)
[2021-05-26] MEDS: FAMOTIDINE 20 MG/2 ML VIAL IV SCH ×2 (11:15→22:13)
[2021-05-26] MEDS: methylPREDNISolone SOD SUC 125 MG/2 ML VIAL IV SCH ×2 (11:15→21:54)
[2021-05-26] MEDS: ENOXAPARIN 40 MG/0.4 ML SYRINGE SUBCUT SCH (11:15)
[2021-05-26] MEDS: SIMVASTATIN 20 MG TABLET PO SCH (20:53)
[2021-05-27] MEDS: ALBUTEROL/IPRATROPIUM 3 ML NEB RESP TX SCH ×4 (01:08→18:04)
[2021-05-27] MEDS: INSULIN REGULAR 100 UNIT/ML SUBCUT SCH ×5 (01:37→23:02)
[2021-05-27 03:06] LABS: ABG Base Excess 6.3 MMOL/L (-2.5-2.5); ABG HCO3 31.6 MMOL/L (20-26); ABG Oxygen Saturation 96.5 % (95-100); ABG PCO2 48.3 MM HG (35-48); ABG PH 7.434 (7.35-7.45); ABG PO2 89.7 MM HG (80-95); ABG TCO2 33.1 MMOL/L (23-27); Allen Test Positive; Pt O2 Delivery Device Ventilator
[2021-05-27 04:12] LABS: Calcium 7.3 MG/DL (8.5-10.1); Osmolality,Calculated 326.6 MOS/KG (273-304); Potassium 4.3 MMOL/L (3.5-5.1)
[2021-05-27 04:19] LABS: INR 1.1; PT Patient Result 12.1 SECS (10.5-12.0)
[2021-05-27 04:20] LABS: ABG Base Excess 6.3 MMOL/L (-2.5-2.5); ABG HCO3 31.6 MMOL/L (20-26); ABG Oxygen Saturation 96.5 % (95-100); ABG PCO2 48.4 MM HG (35-48); ABG PH 7.433 (7.35-7.45); ABG PO2 91.1 MM HG (80-95); ABG TCO2 33.1 MMOL/L (23-27)
[2021-05-27 04:51] LABS: Basophils % 0.2 % (0.0-0.8); Eosinophils % 0.1 % (0.00-10.9); Hematocrit 41.3 VOL% (42.0-52.0); Hemoglobin 12.4 GM/DL (14.0-18.0); Immature Granulocytes % 1.8 %; Immature Granulocytes Absolute 0.31 #; Lymphocytes # 0.5 10*3/uL (1.4-4.0); Lymphocytes % 2.8 % (21.2-54.2); Mean Corpuscular Volume 95.6 FL (87-102); Mean Platelet Volume 10.7 FL (9.6-12.0); Monocytes % 3.6 % (1.7-12.7); Neutrophils % 91.5 % (38.7-73.9); Platelet Count 176 T/CUMM (130-400); Red Blood Count 4.32 MC/CUMM (3.8-5.5); White Blood Count 17.5 T/CUMM (4-12)
[2021-05-27 05:02] LABS: Hypochromia Slight; Lymphocytes 3 % (20-55); Microcytosis Slight; Platelet Estimate Adequate; Segmented Neutrophils 95 % (50-85); Total Cells Counted 100
[2021-05-27] MEDS: LEVOTHYROXINE 75 MCG TABLET PO SCH (06:08)
[2021-05-27] MEDS: fentaNYL INJ 1,250 MCG in SODIUM CHLORIDE 0.9% 225 ML IV PRN ×2 (07:00→19:50)
[2021-05-27] MEDS: FUROSEMIDE 40 MG/4 ML VIAL IV SCH (08:50)
[2021-05-27] MEDS: SACUBITRIL/VALSARTAN 49-51 MG TABLET PO SCH ×2 (08:50→20:44)
[2021-05-27] MEDS: carvediloL 25 MG TABLET PO SCH ×2 (08:50→20:44)
[2021-05-27] MEDS: SPIRONOLACTONE 25 MG TABLET PO SCH (08:50)
[2021-05-27] MEDS: cefTRIAXone 1,000 MG in SODIUM CHLORIDE 0.9% 100 ML IV SCH (08:50)
[2021-05-27] MEDS: INSULIN GLARGINE 100 UNIT/ML SUBCUT SCH (08:50)
[2021-05-27] MEDS: FAMOTIDINE 8 MG/ML 50 ML/BOTTLE PER TUBE SCH ×2 (08:50→20:44)
[2021-05-27] MEDS: ASPIRIN CHEW 81 MG TABLET PO SCH (08:50)
[2021-05-27] MEDS: ENOXAPARIN 40 MG/0.4 ML SYRINGE SUBCUT SCH (10:50)
[2021-05-27] MEDS: methylPREDNISolone SOD SUC 125 MG/2 ML VIAL IV SCH ×2 (10:50→23:16)
[2021-05-27] MEDS: ACETAMINOPHEN 325 MG TABLET PO PRN ×2 (12:10→20:44)
[2021-05-27] MEDS: SIMVASTATIN 20 MG TABLET PO SCH (20:44)
[2021-05-28] MEDS: ALBUTEROL/IPRATROPIUM 3 ML NEB RESP TX SCH ×4 (00:53→19:05)
[2021-05-28] MEDS: ACETAMINOPHEN 325 MG TABLET PO PRN (01:10)
[2021-05-28 03:48] LABS: ABG Base Excess 8.2 MMOL/L (-2.5-2.5); ABG HCO3 31.9 MMOL/L (20-26); ABG Oxygen Saturation 97.3 % (95-100); ABG PCO2 43.7 MM HG (35-48); ABG PH 7.481 (7.35-7.45); ABG PO2 92.6 MM HG (80-95); ABG TCO2 28.9 MMOL/L (23-27)
[2021-05-28 03:55] LABS: Basophils % 0.2 % (0.0-0.8); Hematocrit 38.9 VOL% (42.0-52.0); Hemoglobin 11.9 GM/DL (14.0-18.0); Immature Granulocytes % 1.2 %; Immature Granulocytes Absolute 0.22 #; Lymphocytes # 0.7 10*3/uL (1.4-4.0); Lymphocytes % 3.7 % (21.2-54.2); Mean Corpuscular HGB Conc 30.6 GM/DL (32-36); Mean Corpuscular Volume 95.1 FL (87-102); Mean Platelet Volume 11.3 FL (9.6-12.0); Monocytes % 3.6 % (1.7-12.7); Neutrophils % 91.3 % (38.7-73.9); Platelet Count 158 T/CUMM (130-400); Red Blood Count 4.09 MC/CUMM (3.8-5.5); Red Cell Distribution Width 14.1 % (9.3-17.3); White Blood Count 18.6 T/CUMM (4-12)
[2021-05-28 04:04] LABS: PT Patient Result 11.4 SECS (10.5-12.0)
[2021-05-28 04:09] LABS: Calcium 7.3 MG/DL (8.5-10.1); Osmolality,Calculated 319.7 MOS/KG (273-304); Potassium 4.1 MMOL/L (3.5-5.1)
[2021-05-28 04:15] LABS: Hypochromia 1+; Lymphocytes 3 % (20-55); Microcytosis 1+; Platelet Estimate Adequate; Segmented Neutrophils 94 % (50-85); Total Cells Counted 100
[2021-05-28] MEDS: INSULIN REGULAR 100 UNIT/ML SUBCUT SCH ×3 (05:54→18:01)
[2021-05-28] MEDS: LEVOTHYROXINE 75 MCG TABLET PO SCH (06:03)
[2021-05-28] MEDS: carvediloL 25 MG TABLET PO SCH ×2 (08:05→21:44)
[2021-05-28] MEDS: ASPIRIN CHEW 81 MG TABLET PO SCH (08:05)
[2021-05-28] MEDS: SPIRONOLACTONE 25 MG TABLET PO SCH (08:05)
[2021-05-28] MEDS: SACUBITRIL/VALSARTAN 49-51 MG TABLET PO SCH ×2 (08:05→21:44)
[2021-05-28] MEDS: FUROSEMIDE 40 MG/4 ML VIAL IV SCH (08:05)
[2021-05-28] MEDS: INSULIN GLARGINE 100 UNIT/ML SUBCUT SCH (08:05)
[2021-05-28] MEDS: FAMOTIDINE 8 MG/ML 50 ML/BOTTLE PER TUBE SCH ×2 (08:06→21:44)
[2021-05-28] MEDS: cefTRIAXone 1,000 MG in SODIUM CHLORIDE 0.9% 100 ML IV SCH (08:49)
[2021-05-28] MEDS ORDERED: fentaNYL 25 MCG/HR PATCH TRANSDERM SCH (09:30)
[2021-05-28] MEDS: DEXTROSE 5% 1,000 ML IV SCH (11:00)
[2021-05-28] MEDS: methylPREDNISolone SOD SUC 125 MG/2 ML VIAL IV SCH ×2 (11:00→21:50)
[2021-05-28] MEDS: ENOXAPARIN 40 MG/0.4 ML SYRINGE SUBCUT SCH (11:03)
[2021-05-28] MEDS: fentaNYL INJ 1,250 MCG in SODIUM CHLORIDE 0.9% 225 ML IV PRN (12:40)
[2021-05-28] MEDS: SIMVASTATIN 20 MG TABLET PO SCH (21:44)
[2021-05-29] MEDS: ALBUTEROL/IPRATROPIUM 3 ML NEB RESP TX SCH ×4 (00:03→20:05)
[2021-05-29] MEDS: INSULIN REGULAR 100 UNIT/ML SUBCUT SCH ×4 (00:54→17:31)
[2021-05-29 04:02] LABS: ABG Base Excess 8.3 MMOL/L (-2.5-2.5); ABG HCO3 32.3 MMOL/L (20-26); ABG Oxygen Saturation 97.5 % (95-100); ABG PCO2 42.8 MM HG (35-48); ABG PH 7.496 (7.35-7.45); ABG PO2 100.2 MM HG (80-95); ABG TCO2 33.6 MMOL/L (23-27); Allen Test Positive; Pt O2 Delivery Device Ventilator
[2021-05-29 04:52] LABS: Basophils % 0.1 % (0.0-0.8); Hemoglobin 11.2 GM/DL (14.0-18.0); Immature Granulocytes % 0.7 %; Immature Granulocytes Absolute 0.13 #; Lymphocytes # 0.7 10*3/uL (1.4-4.0); Mean Corpuscular HGB Conc 30.3 GM/DL (32-36); Mean Corpuscular Volume 94.1 FL (87-102); Mean Platelet Volume 11.3 FL (9.6-12.0); Monocytes % 3.7 % (1.7-12.7); Neutrophils % 91.5 % (38.7-73.9); Platelet Count 139 T/CUMM (130-400); Red Blood Count 3.93 MC/CUMM (3.8-5.5); Red Cell Distribution Width 13.9 % (9.3-17.3); White Blood Count 17.5 T/CUMM (4-12)
[2021-05-29 05:07] LABS: Calcium 7.3 MG/DL (8.5-10.1); Potassium 4.1 MMOL/L (3.5-5.1)
[2021-05-29 05:14] LABS: Hypochromia Slight; Lymphocytes 5 % (20-55); Microcytosis Slight; Platelet Estimate Adequate; Segmented Neutrophils 92 % (50-85); Total Cells Counted 100
[2021-05-29] MEDS: LEVOTHYROXINE 75 MCG TABLET PO SCH (06:28)
[2021-05-29] MEDS: DEXTROSE 5% 1,000 ML IV SCH (07:30)
[2021-05-29] MEDS: INSULIN GLARGINE 100 UNIT/ML SUBCUT SCH (08:36)
[2021-05-29] MEDS: carvediloL 25 MG TABLET PO SCH ×2 (08:36→21:06)
[2021-05-29] MEDS: cefTRIAXone 1,000 MG in SODIUM CHLORIDE 0.9% 100 ML IV SCH (08:36)
[2021-05-29] MEDS: SPIRONOLACTONE 25 MG TABLET PO SCH (08:36)
[2021-05-29] MEDS: FAMOTIDINE 8 MG/ML 50 ML/BOTTLE PER TUBE SCH ×2 (08:36→21:06)
[2021-05-29] MEDS: SACUBITRIL/VALSARTAN 49-51 MG TABLET PO SCH ×2 (08:36→21:06)
[2021-05-29] MEDS: ASPIRIN CHEW 81 MG TABLET PO SCH (08:36)
[2021-05-29] MEDS: methylPREDNISolone SOD SUC 125 MG/2 ML VIAL IV SCH ×2 (10:52→22:15)
[2021-05-29] MEDS: ENOXAPARIN 40 MG/0.4 ML SYRINGE SUBCUT SCH (10:52)
[2021-05-29] MEDS ORDERED: HEPARIN/NACL 0.9% 2 UNITS/ML 2,000 UNIT/1,000 ML BAG IV ONE (14:38)
[2021-05-29] MEDS ORDERED: NITROGLYCERIN DRIP 50 MG/250 ML BOTTLE IV ONE (15:13)
[2021-05-29] MEDS ORDERED: VERAPAMIL 5 MG/2 ML VIAL ONE (15:13)
[2021-05-29] MEDS ORDERED: ENOXAPARIN 60 MG/0.6 ML SYRINGE ONE (15:37)
[2021-05-29] MEDS ORDERED: HEPARIN/NACL 0.9% 2 UNITS/ML 1,000 UNIT/500 ML BAG IV ONE (16:01)
[2021-05-29] MEDS ORDERED: TICAGRELOR 90 MG TABLET ONE (16:30)
[2021-05-29] MEDS: TICAGRELOR 90 MG TABLET PO SCH (21:06)
[2021-05-29] MEDS: SIMVASTATIN 20 MG TABLET PO SCH (21:06)
[2021-05-30] MEDS: INSULIN REGULAR 100 UNIT/ML SUBCUT SCH ×5 (00:35→23:23)
[2021-05-30] MEDS: ALBUTEROL/IPRATROPIUM 3 ML NEB RESP TX SCH ×4 (00:59→18:08)
[2021-05-30 04:28] LABS: Basophils % 0.1 % (0.0-0.8); Hematocrit 33.6 VOL% (42.0-52.0); Hemoglobin 10.1 GM/DL (14.0-18.0); Immature Granulocytes % 0.8 %; Immature Granulocytes Absolute 0.13 #; Lymphocytes # 0.5 10*3/uL (1.4-4.0); Lymphocytes % 3.2 % (21.2-54.2); Mean Corpuscular HGB Conc 30.1 GM/DL (32-36); Mean Corpuscular Volume 95.2 FL (87-102); Mean Platelet Volume 11.9 FL (9.6-12.0); Monocytes % 3.1 % (1.7-12.7); Neutrophils % 92.8 % (38.7-73.9); Platelet Count 129 T/CUMM (130-400); Red Blood Count 3.53 MC/CUMM (3.8-5.5); Red Cell Distribution Width 13.8 % (9.3-17.3); White Blood Count 16.5 T/CUMM (4-12)
[2021-05-30 04:48] LABS: Calcium 6.9 MG/DL (8.5-10.1); Osmolality,Calculated 308.3 MOS/KG (273-304); Potassium 3.9 MMOL/L (3.5-5.1)
[2021-05-30 04:49] LABS: Hypochromia Slight; Lymphocytes 3 % (20-55); Microcytosis Slight; Platelet Estimate Normal; Segmented Neutrophils 96 % (50-85); Total Cells Counted 100
[2021-05-30 05:34] LABS: Arterial Bicarbonate iSTAT 30.5 MMOL/L (20-26); Arterial pH iSTAT 7.497 (7.35-7.45)
[2021-05-30] MEDS: DEXTROSE 5% 1,000 ML IV SCH (06:20)
[2021-05-30] MEDS: LEVOTHYROXINE 75 MCG TABLET PO SCH (06:36)
[2021-05-30 06:43] LABS: Potassium 3.9 MMOL/L (3.5-5.1)
[2021-05-30 07:06] LABS: Osmolality,Calculated 309.3 MOS/KG (273-304)
[2021-05-30] MEDS: SPIRONOLACTONE 25 MG TABLET PO SCH (08:02)
[2021-05-30] MEDS: ASPIRIN CHEW 81 MG TABLET PO SCH (08:02)
[2021-05-30] MEDS: SACUBITRIL/VALSARTAN 49-51 MG TABLET PO SCH ×2 (08:02→20:27)
[2021-05-30] MEDS: carvediloL 25 MG TABLET PO SCH ×2 (08:02→20:27)
[2021-05-30] MEDS: ACETAMINOPHEN 325 MG TABLET PO PRN (08:03)
[2021-05-30] MEDS: FAMOTIDINE 8 MG/ML 50 ML/BOTTLE PER TUBE SCH ×2 (08:03→20:27)
[2021-05-30] MEDS: TICAGRELOR 90 MG TABLET PO SCH ×2 (08:03→20:27)
[2021-05-30] MEDS: INSULIN GLARGINE 100 UNIT/ML SUBCUT SCH (08:03)
[2021-05-30] MEDS: cefTRIAXone 1,000 MG in SODIUM CHLORIDE 0.9% 100 ML IV SCH (08:43)
[2021-05-30 09:53] LABS: Mucus,Urine Occasional /LPF (Occasional); RBC,Urine 120 /HPF (0-4); Uric Acid Crystals,Urine Occasional /HPF (<1)
[2021-05-30 09:54] LABS: Bilirubin,Urine Negative (Negative); Blood, Urine Moderate mg/dL (Negative); Glucose,Urine (UA) Negative (Negative); Ketones,Urine Negative (Negative); Nitrite,Urine Negative (Negative); Protein,Urine Negative; Urine Appearance Slightly Hazy (Clear); Urine Color Dark Yellow (Yellow); Urine Specific Gravity 1.025 (1.001-1.035); Urine Urobilinogen 0.2 EU/DL (<2.0); Urine pH 5.5 (4.5-8.0)
[2021-05-30] MEDS: methylPREDNISolone SOD SUC 125 MG/2 ML VIAL IV SCH ×2 (10:50→22:53)
[2021-05-30] MEDS: ENOXAPARIN 40 MG/0.4 ML SYRINGE SUBCUT SCH (11:41)
[2021-05-30 14:27] LABS: Arterial Base Excess iSTAT 6 MMOL/L (-2.5-2.5); Arterial Bicarbonate iSTAT 30.2 MMOL/L (20-26); Arterial O2 Saturation iSTAT 98 % (95-100); Arterial PCO2 iSTAT 39 MM HG (35-48); Arterial PO2 iSTAT 95 MM HG (80-95); Arterial Total CO2 iSTAT 31 MMO/L (23-27); Arterial pH iSTAT 7.496 (7.35-7.45)
[2021-05-30] MEDS ORDERED: FUROSEMIDE 20 MG/2 ML VIAL IV ONE (16:07)
[2021-05-30] MEDS: SIMVASTATIN 20 MG TABLET PO SCH (20:27)
[2021-05-30] MEDS: DEXTROSE 10% 250 ML BAG IV PRN (23:20)
[2021-05-31] MEDS: ALBUTEROL/IPRATROPIUM 3 ML NEB RESP TX SCH ×4 (00:17→19:13)
[2021-05-31] MEDS: DEXTROSE 10% 250 ML BAG IV PRN ×2 (00:55→06:38)
[2021-05-31 03:36] LABS: Basophils % 0.1 % (0.0-0.8); Eosinophils % 0.1 % (0.00-10.9); Hemoglobin 12.4 GM/DL (14.0-18.0); Immature Granulocytes % 0.9 %; Immature Granulocytes Absolute 0.18 #; Lymphocytes # 0.4 10*3/uL (1.4-4.0); Lymphocytes % 1.8 % (21.2-54.2); Mean Corpuscular Volume 92.8 FL (87-102); Mean Platelet Volume 13.3 FL (9.6-12.0); Monocytes % 3.3 % (1.7-12.7); Neutrophils % 93.8 % (38.7-73.9); Platelet Count 49 T/CUMM (130-400); Red Blood Count 4.31 MC/CUMM (3.8-5.5); Red Cell Distribution Width 13.4 % (9.3-17.3); White Blood Count 20.4 T/CUMM (4-12)
[2021-05-31 03:57] LABS: Band Neutrophils 1 % (0-10); Lymphocytes 1 % (20-55); Platelet Estimate Decreased; Segmented Neutrophils 96 % (50-85); Total Cells Counted 100
[2021-05-31 03:58] LABS: Hypochromia Slight; Microcytosis Slight
[2021-05-31 04:02] LABS: Calcium 7.5 MG/DL (8.5-10.1); Osmolality,Calculated 290.3 MOS/KG (273-304); Potassium 3.7 MMOL/L (3.5-5.1)
[2021-05-31] MEDS: INSULIN REGULAR 100 UNIT/ML SUBCUT SCH ×3 (06:22→18:44)
[2021-05-31 07:19] LABS: Arterial Base Excess iSTAT 6 MMOL/L (-2.5-2.5); Arterial Bicarbonate iSTAT 29.5 MMOL/L (20-26); Arterial O2 Saturation iSTAT 99 % (95-100); Arterial PCO2 iSTAT 38 MM HG (35-48); Arterial PO2 iSTAT 125 MM HG (80-95); Arterial Total CO2 iSTAT 31 MMO/L (23-27); Arterial pH iSTAT 7.498 (7.35-7.45)
[2021-05-31] MEDS: INSULIN GLARGINE 100 UNIT/ML SUBCUT SCH (08:35)
[2021-05-31] MEDS: cefTRIAXone 1,000 MG in SODIUM CHLORIDE 0.9% 100 ML IV SCH (08:40)
[2021-05-31] MEDS: methylPREDNISolone SOD SUC 125 MG/2 ML VIAL IV SCH ×2 (09:58→21:37)
[2021-05-31 10:37] LABS: Arterial Bicarbonate iSTAT 29.5 MMOL/L (20-26); Arterial pH iSTAT 7.508 (7.35-7.45)
[2021-05-31] MEDS: DORNASE ALFA 2.5 MG/2.5 ML VIAL RESP TX SCH ×2 (11:03→19:13)
[2021-05-31 11:21] LABS: Bacteria,Urine Occasional /HPF (Few); Mucus,Urine Occasional /LPF (Occasional); RBC,Urine 31 /HPF (0-4)
[2021-05-31 11:22] LABS: Urine Appearance Clear (Clear); Urine Color Yellow (Yellow)
[2021-05-31 11:23] LABS: Bilirubin,Urine Negative (Negative); Blood, Urine Moderate mg/dL (Negative); Glucose,Urine (UA) Negative (Negative); Ketones,Urine Negative (Negative); Nitrite,Urine Negative (Negative); Protein,Urine 1+ MG/DL; Urine Urobilinogen 0.2 EU/DL (<2.0)
[2021-05-31] MEDS: ENOXAPARIN 40 MG/0.4 ML SYRINGE SUBCUT SCH (11:27)
[2021-05-31] MEDS: LEVOTHYROXINE 75 MCG TABLET PO SCH (16:36)
[2021-05-31] MEDS: carvediloL 25 MG TABLET PO SCH ×2 (16:36→21:37)
[2021-05-31] MEDS: ASPIRIN CHEW 81 MG TABLET PO SCH (16:37)
[2021-05-31] MEDS: TICAGRELOR 90 MG TABLET PO SCH ×2 (16:37→21:37)
[2021-05-31] MEDS: SPIRONOLACTONE 25 MG TABLET PO SCH (16:37)
[2021-05-31] MEDS: FAMOTIDINE 8 MG/ML 50 ML/BOTTLE PER TUBE SCH ×2 (16:37→21:45)
[2021-05-31] MEDS: MONTELUKAST 10 MG TABLET PO SCH (16:37)
[2021-05-31] MEDS: SACUBITRIL/VALSARTAN 49-51 MG TABLET PO SCH ×2 (16:37→21:37)
[2021-05-31] MEDS: POTASSIUM CHLORIDE 20 MEQ TABLET PO PRN (17:24)
[2021-05-31] MEDS: SIMVASTATIN 20 MG TABLET PO SCH (21:37)
[2021-05-31] MEDS: ACETAMINOPHEN 325 MG TABLET PO PRN (22:30)
[2021-06-01] MEDS: INSULIN REGULAR 100 UNIT/ML SUBCUT SCH ×4 (00:21→17:40)
[2021-06-01] MEDS: ALBUTEROL/IPRATROPIUM 3 ML NEB RESP TX SCH ×4 (00:52→19:26)
[2021-06-01 03:29] LABS: ABG Base Excess 1.8 MMOL/L (-2.5-2.5); ABG HCO3 24.4 MMOL/L (20-26); ABG PCO2 31.4 MM HG (35-48); ABG PH 7.508 (7.35-7.45); ABG PO2 111.8 MM HG (80-95); ABG TCO2 25.3 MMOL/L (23-27); Allen Test Positive; Pt O2 Delivery Device Other
[2021-06-01] MEDS: ACETAMINOPHEN 325 MG TABLET PO PRN ×3 (05:21→16:19)
[2021-06-01] MEDS: LEVOTHYROXINE 75 MCG TABLET PO SCH (06:10)
[2021-06-01 06:16] LABS: Calcium 7.7 MG/DL (8.5-10.1); Osmolality,Calculated 301.1 MOS/KG (273-304); Potassium 3.6 MMOL/L (3.5-5.1)
[2021-06-01 06:20] LABS: Basophils % 0.1 % (0.0-0.8); Hematocrit 36.1 VOL% (42.0-52.0); Hemoglobin 11.2 GM/DL (14.0-18.0); Immature Granulocytes % 0.6 %; Immature Granulocytes Absolute 0.08 #; Lymphocytes # 0.3 10*3/uL (1.4-4.0); Lymphocytes % 2.1 % (21.2-54.2); Mean Corpuscular Volume 91.9 FL (87-102); Mean Platelet Volume 11.5 FL (9.6-12.0); Monocytes % 2.9 % (1.7-12.7); Neutrophils % 94.3 % (38.7-73.9); Platelet Count 169 T/CUMM (130-400); Red Blood Count 3.93 MC/CUMM (3.8-5.5); Red Cell Distribution Width 13.5 % (9.3-17.3); White Blood Count 14.3 T/CUMM (4-12)
[2021-06-01] MEDS: POTASSIUM CHLORIDE RIDER 20 MEQ/100 ML PREMIX IV PRN (06:36)
[2021-06-01 06:53] LABS: Lymphocytes 2 % (20-55); Platelet Estimate Adequate; Segmented Neutrophils 96 % (50-85); Total Cells Counted 100
[2021-06-01] MEDS: DORNASE ALFA 2.5 MG/2.5 ML VIAL RESP TX SCH ×2 (07:21→19:26)
[2021-06-01] MEDS: FAMOTIDINE 8 MG/ML 50 ML/BOTTLE PER TUBE SCH ×2 (08:35→22:39)
[2021-06-01] MEDS: TICAGRELOR 90 MG TABLET PO SCH ×2 (08:35→23:40)
[2021-06-01] MEDS: ASPIRIN CHEW 81 MG TABLET PO SCH (08:35)
[2021-06-01] MEDS: carvediloL 25 MG TABLET PO SCH ×2 (08:35→22:39)
[2021-06-01] MEDS: MONTELUKAST 10 MG TABLET PO SCH (08:35)
[2021-06-01] MEDS: SACUBITRIL/VALSARTAN 49-51 MG TABLET PO SCH ×2 (08:35→22:39)
[2021-06-01] MEDS: SPIRONOLACTONE 25 MG TABLET PO SCH (08:35)
[2021-06-01] MEDS: cefTRIAXone 1,000 MG in SODIUM CHLORIDE 0.9% 100 ML IV SCH (08:45)
[2021-06-01] MEDS ORDERED: FUROSEMIDE 40 MG/4 ML VIAL ONE (08:50)
[2021-06-01] MEDS ORDERED: FUROSEMIDE 20 MG/2 ML VIAL IV ONE (09:00)
[2021-06-01] MEDS: methylPREDNISolone SOD SUC 125 MG/2 ML VIAL IV SCH ×2 (09:32→22:39)
[2021-06-01] MEDS: PIPERACILLIN/TAZOBACTAM 3,375 MG in SODIUM CHLORIDE 0.9% 100 ML IV SCH ×2 (09:34→17:40)
[2021-06-01] MEDS ORDERED: IBUPROFEN 100 MG/5 ML UDCUP PO PRN (19:06)
[2021-06-01] MEDS ORDERED: KETOROLAC 15 MG/1 ML VIAL IV ONE (19:43)
[2021-06-01] MEDS ORDERED: ONDANSETRON 4 MG/2 ML VIAL IV PRN (19:46)
[2021-06-01 20:39] LABS: Arterial Base Excess iSTAT 4 MMOL/L (-2.5-2.5); Arterial O2 Saturation iSTAT 100 % (95-100); Arterial PCO2 iSTAT 35 MM HG (35-48); Arterial PO2 iSTAT 171 MM HG (80-95); Arterial Total CO2 iSTAT 28 MMO/L (23-27); Arterial pH iSTAT 7.501 (7.35-7.45)
[2021-06-01 20:46] LABS: Amorphous Crystals,Urine Occasional /HPF (Few); Mucus,Urine Occasional /LPF (Occasional); RBC,Urine 15-20 /HPF (0-4)
[2021-06-01 20:47] LABS: Glucose,Urine (UA) Negative (Negative); Ketones,Urine Negative (Negative); Nitrite,Urine Negative (Negative); Protein,Urine Trace mg/dL (Negative); Urine Appearance Slightly Cloudy (Clear); Urine Color Yellow (Yellow); Urine Specific Gravity 1.025 (1.001-1.035)
[2021-06-01 20:48] LABS: Bilirubin,Urine Negative (Negative); Blood, Urine Small mg/dL (Negative); Urine Urobilinogen 0.2 eU/dL (<2.0)
[2021-06-01] MEDS: SIMVASTATIN 20 MG TABLET PO SCH (22:39)
[2021-06-02] MEDS: PIPERACILLIN/TAZOBACTAM 3,375 MG in SODIUM CHLORIDE 0.9% 100 ML IV SCH ×2 (00:47→08:37)
[2021-06-02] MEDS: INSULIN REGULAR 100 UNIT/ML SUBCUT SCH ×4 (00:54→17:05)
[2021-06-02] MEDS ORDERED: ACETAMINOPHEN 650 MG SUPP RECTAL PRN (00:54)
[2021-06-02] MEDS: ALBUTEROL/IPRATROPIUM 3 ML NEB RESP TX SCH ×4 (01:34→19:32)
[2021-06-02 06:41] LABS: Basophils % 0.2 % (0.0-0.8); Eosinophils % 0.1 % (0.00-10.9); Hematocrit 36.3 VOL% (42.0-52.0); Immature Granulocytes % 0.5 %; Immature Granulocytes Absolute 0.08 #; Lymphocytes # 0.5 10*3/uL (1.4-4.0); Lymphocytes % 3.2 % (21.2-54.2); Mean Corpuscular HGB Conc 30.3 GM/DL (32-36); Mean Corpuscular Volume 95.5 FL (87-102); Mean Platelet Volume 11.7 FL (9.6-12.0); Monocytes % 2.3 % (1.7-12.7); Neutrophils % 93.7 % (38.7-73.9); Platelet Count 137 T/CUMM (130-400); Red Cell Distribution Width 14.2 % (9.3-17.3); White Blood Count 14.6 T/CUMM (4-12)
[2021-06-02 07:03] LABS: Calcium 7.6 MG/DL (8.5-10.1); Osmolality,Calculated 309.7 MOS/KG (273-304)
[2021-06-02] MEDS: DORNASE ALFA 2.5 MG/2.5 ML VIAL RESP TX SCH ×2 (07:19→19:32)
[2021-06-02 07:39] LABS: Band Neutrophils 12 % (0-10); Lymphocytes 4 % (20-55); Platelet Estimate Adequate; Segmented Neutrophils 82 % (50-85); Total Cells Counted 100
[2021-06-02 07:40] LABS: Macrocytosis 1+
[2021-06-02] MEDS ORDERED: PANTOPRAZOLE INJ 200 MG in SODIUM CHLORIDE 0.9% 250 ML IV SCH (09:00)
[2021-06-02] MEDS: MONTELUKAST 10 MG TABLET PO SCH (09:27)
[2021-06-02] MEDS: LEVOTHYROXINE 75 MCG TABLET PO SCH (09:27)
[2021-06-02] MEDS: carvediloL 25 MG TABLET PO SCH ×2 (09:27→20:16)
[2021-06-02] MEDS: SPIRONOLACTONE 25 MG TABLET PO SCH (09:28)
[2021-06-02] MEDS: ASPIRIN CHEW 81 MG TABLET PO SCH (09:34)
[2021-06-02] MEDS: methylPREDNISolone SOD SUC 125 MG/2 ML VIAL IV SCH ×2 (09:34→21:51)
[2021-06-02] MEDS: TICAGRELOR 90 MG TABLET PO SCH ×2 (09:34→20:16)
[2021-06-02] MEDS: CEFEPIME 1,000 MG in SODIUM CHLORIDE 0.9% 100 ML IV SCH ×3 (11:10→21:50)
[2021-06-02] MEDS: metroNIDAZOLE INJ 500 MG/100 ML PREMIX IV SCH ×2 (11:30→18:03)
[2021-06-02 11:40] LABS: Hematocrit 33.8 VOL% (42.0-52.0)
[2021-06-02 15:58] LABS: Hematocrit 32.8 VOL% (42.0-52.0); Hemoglobin 9.8 GM/DL (14.0-18.0)
[2021-06-02] MEDS: DEXTROSE 5% 1,000 ML IV SCH (19:22)
[2021-06-02] MEDS: SIMVASTATIN 20 MG TABLET PO SCH (20:16)
[2021-06-02 21:10] LABS: Hematocrit 33.2 VOL% (42.0-52.0)
[2021-06-03] MEDS: ALBUTEROL/IPRATROPIUM 3 ML NEB RESP TX SCH ×4 (00:12→19:27)
[2021-06-03] MEDS: INSULIN REGULAR 100 UNIT/ML SUBCUT SCH ×5 (00:50→23:12)
[2021-06-03] MEDS: metroNIDAZOLE INJ 500 MG/100 ML PREMIX IV SCH ×3 (03:26→17:41)
[2021-06-03] MEDS: CEFEPIME 1,000 MG in SODIUM CHLORIDE 0.9% 100 ML IV SCH ×4 (04:49→22:13)
[2021-06-03] MEDS: DEXTROSE 5% 1,000 ML IV SCH (06:37)
[2021-06-03 06:46] LABS: Basophils % 0.1 % (0.0-0.8); Eosinophils % 0.2 % (0.00-10.9); Hematocrit 30.8 VOL% (42.0-52.0); Hemoglobin 9.6 GM/DL (14.0-18.0); Immature Granulocytes % 0.3 %; Immature Granulocytes Absolute 0.04 #; Lymphocytes # 0.3 10*3/uL (1.4-4.0); Lymphocytes % 2.4 % (21.2-54.2); Mean Corpuscular HGB Conc 31.2 GM/DL (32-36); Mean Corpuscular Volume 91.1 FL (87-102); Mean Platelet Volume 12.9 FL (9.6-12.0); Monocytes % 1.9 % (1.7-12.7); Neutrophils % 95.1 % (38.7-73.9); Platelet Count 139 T/CUMM (130-400); Red Blood Count 3.38 MC/CUMM (3.8-5.5); Red Cell Distribution Width 14.5 % (9.3-17.3); White Blood Count 12.5 T/CUMM (4-12)
[2021-06-03] MEDS: DORNASE ALFA 2.5 MG/2.5 ML VIAL RESP TX SCH ×2 (07:09→19:27)
[2021-06-03 07:12] LABS: Smudge Cells Few
[2021-06-03 07:14] LABS: Anisocytosis 1+; Band Neutrophils 28 % (0-10); Lymphocytes 3 % (20-55); Platelet Estimate Adequate; Segmented Neutrophils 67 % (50-85); Total Cells Counted 100
[2021-06-03 07:15] LABS: Calcium 7.4 MG/DL (8.5-10.1); Osmolality,Calculated 329.1 MOS/KG (273-304); Potassium 3.9 MMOL/L (3.5-5.1)
[2021-06-03] MEDS: LEVOTHYROXINE 75 MCG TABLET PO SCH (09:44)
[2021-06-03] MEDS: TICAGRELOR 90 MG TABLET PO SCH ×2 (09:45→20:52)
[2021-06-03] MEDS: MONTELUKAST 10 MG TABLET PO SCH (09:46)
[2021-06-03] MEDS: ASPIRIN CHEW 81 MG TABLET PO SCH (09:46)
[2021-06-03] MEDS: carvediloL 25 MG TABLET PO SCH ×2 (09:46→20:52)
[2021-06-03] MEDS: PANTOPRAZOLE 40 MG VIAL IV SCH ×2 (09:47→20:51)
[2021-06-03] MEDS: methylPREDNISolone SOD SUC 125 MG/2 ML VIAL IV SCH ×2 (09:47→22:14)
[2021-06-03] MEDS: SODIUM CHLOR 0.45% KCL 20 MEQ 20 MEQ/1,000 ML BAG IV SCH (11:35)
[2021-06-03] MEDS: ACETAMINOPHEN 325 MG TABLET PO PRN ×2 (17:41→22:14)
[2021-06-03] MEDS: SIMVASTATIN 20 MG TABLET PO SCH (20:52)
[2021-06-04] MEDS: ALBUTEROL/IPRATROPIUM 3 ML NEB RESP TX SCH ×4 (00:02→18:05)
[2021-06-04] MEDS: metroNIDAZOLE INJ 500 MG/100 ML PREMIX IV SCH ×3 (01:35→18:20)
[2021-06-04] MEDS: CEFEPIME 1,000 MG in SODIUM CHLORIDE 0.9% 100 ML IV SCH ×2 (03:39→09:04)
[2021-06-04 04:49] LABS: Basophils % 0.3 % (0.0-0.8); Hematocrit 28.9 VOL% (42.0-52.0); Hemoglobin 8.8 GM/DL (14.0-18.0); Immature Granulocytes % 0.3 %; Immature Granulocytes Absolute 0.03 #; Lymphocytes # 0.2 10*3/uL (1.4-4.0); Lymphocytes % 2.8 % (21.2-54.2); Mean Corpuscular HGB Conc 30.4 GM/DL (32-36); Mean Corpuscular Volume 92.6 FL (87-102); Mean Platelet Volume 11.6 FL (9.6-12.0); Monocytes % 1.3 % (1.7-12.7); Neutrophils % 95.3 % (38.7-73.9); Platelet Count 146 T/CUMM (130-400); Red Blood Count 3.12 MC/CUMM (3.8-5.5); Red Cell Distribution Width 14.8 % (9.3-17.3); White Blood Count 8.7 T/CUMM (4-12)
[2021-06-04 05:10] LABS: Band Neutrophils 9 % (0-10); Hypochromia 1+; Lymphocytes 3 % (20-55); Microcytosis 1+; Myelocytes 1 %; Platelet Estimate Adequate; Segmented Neutrophils 86 % (50-85); Total Cells Counted 100
[2021-06-04 05:39] LABS: Albumin 1.2 G/DL (3.4-5.0); Bilirubin,Direct 0.19 MG/DL (0.0-0.20); Bilirubin,Indirect 0.3 MG/DL (0.0-1.0); Bilirubin,Total 0.5 MG/DL (0.20-1.00); Total Protein 4.5 G/DL (6.4-8.2)
[2021-06-04] MEDS: INSULIN REGULAR 100 UNIT/ML SUBCUT SCH ×3 (05:40→18:19)
[2021-06-04 05:47] LABS: Calcium 7.1 MG/DL (8.5-10.1); Osmolality,Calculated 342.9 MOS/KG (273-304); Potassium 3.4 MMOL/L (3.5-5.1)
[2021-06-04] MEDS: LEVOTHYROXINE 75 MCG TABLET PO SCH (06:23)
[2021-06-04] MEDS: DORNASE ALFA 2.5 MG/2.5 ML VIAL RESP TX SCH ×2 (07:37→18:05)
[2021-06-04] MEDS: SODIUM CHLOR 0.45% KCL 20 MEQ 20 MEQ/1,000 ML BAG IV SCH (09:04)
[2021-06-04] MEDS: MONTELUKAST 10 MG TABLET PO SCH (09:07)
[2021-06-04] MEDS: PANTOPRAZOLE 40 MG VIAL IV SCH ×2 (09:07→21:31)
[2021-06-04] MEDS: ASPIRIN CHEW 81 MG TABLET PO SCH (09:07)
[2021-06-04] MEDS: POTASSIUM CHLORIDE 20 MEQ TABLET PO PRN ×3 (09:08→17:11)
[2021-06-04] MEDS: TICAGRELOR 90 MG TABLET PO SCH ×2 (09:08→21:30)
[2021-06-04] MEDS: carvediloL 25 MG TABLET PO SCH (09:08)
[2021-06-04] MEDS: methylPREDNISolone SOD SUC 125 MG/2 ML VIAL IV SCH ×2 (09:31→22:16)
[2021-06-04] MEDS: DEXTROSE 5% 1,000 ML IV SCH (10:00)
[2021-06-04] MEDS: CHOLESTYRAMINE/ASPARTAME 4 GM PACK PO SCH ×2 (17:11→21:31)
[2021-06-04] MEDS: VANCOMYCIN 50 MG/ML 60 ML/BOTTLE PER TUBE SCH (18:20)
[2021-06-04] MEDS ORDERED: carvediloL 12.5 MG TABLET PO SCH (21:00)
[2021-06-04] MEDS: SIMVASTATIN 20 MG TABLET PO SCH (21:31)
[2021-06-05] MEDS: ALBUTEROL/IPRATROPIUM 3 ML NEB RESP TX SCH ×4 (00:01→18:01)
[2021-06-05] MEDS: INSULIN REGULAR 100 UNIT/ML SUBCUT SCH ×4 (00:36→17:55)
[2021-06-05] MEDS: VANCOMYCIN 50 MG/ML 60 ML/BOTTLE PER TUBE SCH ×4 (00:36→17:55)
[2021-06-05] MEDS: metroNIDAZOLE INJ 500 MG/100 ML PREMIX IV SCH ×3 (02:23→16:50)
[2021-06-05 03:56] LABS: ABG Base Excess -2.8 MMOL/L (-2.5-2.5); ABG HCO3 21.9 MMOL/L (20-26); ABG Oxygen Saturation 97.7 % (95-100); ABG PCO2 37.4 MM HG (35-48); ABG PH 7.386 (7.35-7.45); ABG TCO2 23.1 MMOL/L (23-27)
[2021-06-05] MEDS ORDERED: ATROPINE 1 MG/10 ML SYRINGE ONE (05:09)
[2021-06-05] MEDS ORDERED: ETOMIDATE 20 MG/10 ML VIAL IV ONE ×2 (05:09→05:12)
[2021-06-05] MEDS ORDERED: ROCURONIUM 100 MG/10 ML VIAL IV ONE (05:09)
[2021-06-05] MEDS ORDERED: EPINEPHrine 1 MG/10 ML SYRINGE IV ONE ×3 (05:10→05:28)
[2021-06-05 05:16] LABS: Basophils % 0.5 % (0.0-0.8); Hematocrit 30.1 VOL% (42.0-52.0); Hemoglobin 8.8 GM/DL (14.0-18.0); Immature Granulocytes % 0.7 %; Immature Granulocytes Absolute 0.06 #; Lymphocytes # 0.6 10*3/uL (1.4-4.0); Lymphocytes % 7.2 % (21.2-54.2); Mean Corpuscular HGB Conc 29.2 GM/DL (32-36); Mean Corpuscular Volume 96.8 FL (87-102); Mean Platelet Volume 11.6 FL (9.6-12.0); Monocytes % 1.2 % (1.7-12.7); Neutrophils % 90.4 % (38.7-73.9); Platelet Count 158 T/CUMM (130-400); Red Blood Count 3.11 MC/CUMM (3.8-5.5); Red Cell Distribution Width 15.1 % (9.3-17.3); White Blood Count 8.5 T/CUMM (4-12)
[2021-06-05] MEDS ORDERED: DOPamine 800 MG/250 ML PREMIX IV ONE (05:16)
[2021-06-05 05:21] LABS: INR 1.2; PT Patient Result 13.2 SECS (10.5-12.0)
[2021-06-05] MEDS: MIDAZOLAM 100 MG in SODIUM CHLORIDE 0.9% 80 ML IV PRN ×2 (05:24→14:50)
[2021-06-05 05:25] LABS: Calcium 7.3 MG/DL (8.5-10.1); Osmolality,Calculated 348.9 MOS/KG (273-304); Potassium 4.3 MMOL/L (3.5-5.1)
[2021-06-05] MEDS ORDERED: EPINEPHrine 1 MG/ML VIAL ONE ×2 (05:28→18:46)
[2021-06-05] MEDS ORDERED: SODIUM BICARBONATE 50 MEQ/50 ML VIAL IV ONE ×2 (05:41→05:58)
[2021-06-05 05:42] LABS: Arterial Bicarbonate iSTAT 23.7 MMOL/L (20-26); Arterial pH iSTAT 7.182 (7.35-7.45)
[2021-06-05 05:42] LABS: Band Neutrophils 6 % (0-10); Hypochromia 1+; Lymphocytes 10 % (20-55); Microcytosis 1+; Platelet Estimate Adequate; Segmented Neutrophils 83 % (50-85); Total Cells Counted 100
[2021-06-05] MEDS ORDERED: ALBUMIN 5% 12.5 GM/250 ML VIAL IV ONE ×2 (05:53→06:30)
[2021-06-05] MEDS ORDERED: ALBUMIN 5% 25.0 GM/500 ML VIAL IV ONE (05:53)
[2021-06-05] MEDS: SODIUM CHLOR 0.45% KCL 20 MEQ 20 MEQ/1,000 ML BAG IV SCH (05:56)
[2021-06-05 05:59] LABS: Alanine Aminotransferase 19 U/L (16-61); Albumin 1.2 G/DL (3.4-5.0); Alkaline Phosphatase 76 U/L (45-117); Aspartate Amino Transferase 23 U/L (0-37); Bilirubin,Total < 0.39 MG/DL (0.20-1.00); Blood Urea Nitrogen 113 MG/DL (7-18); Calcium 7.5 MG/DL (8.5-10.1); Carbon Dioxide 23 MMOL/L (21-32); Estimated Glom Filtration Rate 33 ML/MIN; Glucose 115 MG/DL (74-106); Osmolality,Calculated 348.9 MOS/KG (273-304); Potassium 4.3 MMOL/L (3.5-5.1); Sodium 158 MMOL/L (136-145)
[2021-06-05 06:31] LABS: Hematocrit 27.1 VOL% (42.0-52.0); Hemoglobin 8.1 GM/DL (14.0-18.0)
[2021-06-05] MEDS: LEVOTHYROXINE 75 MCG TABLET PO SCH (06:55)
[2021-06-05] MEDS: DORNASE ALFA 2.5 MG/2.5 ML VIAL RESP TX SCH ×2 (07:23→18:01)
[2021-06-05] MEDS ORDERED: SODIUM CHLORIDE 0.9% 1,000 ML IV PRN (07:56)
[2021-06-05 08:14] LABS: ABG Base Excess -2.7 MMOL/L (-2.5-2.5); ABG HCO3 22.1 MMOL/L (20-26); ABG Oxygen Saturation 99.4 % (95-100); ABG PCO2 55.2 MM HG (35-48); ABG PH 7.258 (7.35-7.45); ABG TCO2 23.5 MMOL/L (23-27)
[2021-06-05] MEDS ORDERED: INSULIN GLARGINE 100 UNIT/ML SUBCUT SCH (09:00)
[2021-06-05] MEDS: PANTOPRAZOLE 40 MG VIAL IV SCH ×2 (09:00→21:46)
[2021-06-05] MEDS: methylPREDNISolone SOD SUC 125 MG/2 ML VIAL IV SCH ×2 (09:05→21:46)
[2021-06-05] MEDS: DEXTROSE 5% 1,000 ML IV SCH ×2 (09:05→18:05)
[2021-06-05] MEDS: TICAGRELOR 90 MG TABLET PO SCH (09:10)
[2021-06-05] MEDS: MONTELUKAST 10 MG TABLET PO SCH (09:10)
[2021-06-05] MEDS: ASPIRIN CHEW 81 MG TABLET PO SCH (09:10)
[2021-06-05] MEDS: CHOLESTYRAMINE/ASPARTAME 4 GM PACK PO SCH ×2 (09:10→21:46)
[2021-06-05 10:53] LABS: Hematocrit 28.6 VOL% (42.0-52.0); Hemoglobin 8.7 GM/DL (14.0-18.0)
[2021-06-05] MEDS: NOREPINEPHRINE 16 MG in SODIUM CHLORIDE 0.9% 234 ML IV PRN (11:45)
[2021-06-05] MEDS: DESITIN 4OZ/NYSTATIN 15 GRAM MIXTURE PASTE TOP SCH ×2 (13:45→21:46)
[2021-06-05] MEDS: SIMVASTATIN 20 MG TABLET PO SCH (21:46)
[2021-06-06] MEDS: ALBUTEROL/IPRATROPIUM 3 ML NEB RESP TX SCH ×4 (00:40→19:38)
[2021-06-06] MEDS: INSULIN REGULAR 100 UNIT/ML SUBCUT SCH ×5 (00:47→23:47)
[2021-06-06] MEDS: VANCOMYCIN 50 MG/ML 60 ML/BOTTLE PER TUBE SCH ×4 (00:47→18:20)
[2021-06-06] MEDS: metroNIDAZOLE INJ 500 MG/100 ML PREMIX IV SCH (02:53)
[2021-06-06] MEDS: MIDAZOLAM 100 MG in SODIUM CHLORIDE 0.9% 80 ML IV PRN (03:06)
[2021-06-06 04:08] LABS: Basophils % 0.1 % (0.0-0.8); Hematocrit 30.4 VOL% (42.0-52.0); Hemoglobin 9.1 GM/DL (14.0-18.0); Immature Granulocytes % 0.4 %; Immature Granulocytes Absolute 0.03 #; Lymphocytes # 0.2 10*3/uL (1.4-4.0); Mean Corpuscular HGB Conc 29.9 GM/DL (32-36); Mean Corpuscular Volume 97.4 FL (87-102); Mean Platelet Volume 11.4 FL (9.6-12.0); Monocytes % 0.8 % (1.7-12.7); Neutrophils % 95.7 % (38.7-73.9); Platelet Count 108 T/CUMM (130-400); Red Blood Count 3.12 MC/CUMM (3.8-5.5); Red Cell Distribution Width 14.9 % (9.3-17.3); White Blood Count 7.1 T/CUMM (4-12)
[2021-06-06 04:10] LABS: ABG Base Excess -6.8 MMOL/L (-2.5-2.5); ABG HCO3 18.8 MMOL/L (20-26); ABG Oxygen Saturation 99.1 % (95-100); ABG PCO2 53.5 MM HG (35-48); ABG TCO2 20.1 MMOL/L (23-27)
[2021-06-06 04:12] LABS: ABG PH 7.209 (7.35-7.45)
[2021-06-06] MEDS: DEXTROSE 5% 1,000 ML IV SCH ×2 (04:19→17:08)
[2021-06-06 04:28] LABS: Band Neutrophils 5 % (0-10); Hypochromia 1+; Lymphocytes 1 % (20-55); Microcytosis 1+; Platelet Estimate Decreased; Segmented Neutrophils 93 % (50-85); Total Cells Counted 100
[2021-06-06] MEDS ORDERED: SODIUM BICARBONATE 50 MEQ/50 ML VIAL IV ONE (04:34)
[2021-06-06 04:36] LABS: Calcium 7.1 MG/DL (8.5-10.1)
[2021-06-06] MEDS: LEVOTHYROXINE 75 MCG TABLET PO SCH (06:03)
[2021-06-06] MEDS: DORNASE ALFA 2.5 MG/2.5 ML VIAL RESP TX SCH ×2 (07:18→19:37)
[2021-06-06] MEDS ORDERED: carvediloL 6.25 MG TABLET PO SCH (09:00)
[2021-06-06] MEDS: ASPIRIN CHEW 81 MG TABLET PO SCH (09:03)
[2021-06-06] MEDS: DESITIN 4OZ/NYSTATIN 15 GRAM MIXTURE PASTE TOP SCH ×2 (09:03→20:54)
[2021-06-06] MEDS: CLOPIDOGREL 75 MG TABLET PO SCH (09:03)
[2021-06-06] MEDS: MONTELUKAST 10 MG TABLET PO SCH (09:03)
[2021-06-06] MEDS: CHOLESTYRAMINE/ASPARTAME 4 GM PACK PO SCH ×2 (09:05→22:36)
[2021-06-06] MEDS: methylPREDNISolone SOD SUC 125 MG/2 ML VIAL IV SCH ×2 (09:34→22:21)
[2021-06-06] MEDS: PANTOPRAZOLE 40 MG VIAL IV SCH ×2 (10:10→20:40)
[2021-06-06] MEDS ORDERED: SODIUM CHLORIDE 0.9% 500 ML IV ONE (14:06)
[2021-06-06] MEDS: FAT EMULSION 20% 250 ML IV SCH (14:19)
[2021-06-06] MEDS ORDERED: SODIUM CHLORIDE 0.9% 1,000 ML IV SCH (14:30)
[2021-06-06] MEDS ORDERED: [UNRECOGNIZED DRUG - OTHER] IV SCH (17:00)
[2021-06-06] MEDS ORDERED: COPPER IV SCH (17:00)
[2021-06-06] MEDS ORDERED: DEXTROSE 10% 1,000 ML IV PRN (17:00)
[2021-06-06] MEDS ORDERED: ZINC IV SCH (17:00)
[2021-06-06] MEDS ORDERED: MULTIVITAMIN IV SCH (17:00)
[2021-06-06] MEDS ORDERED: MANGANESE IV SCH (17:00)
[2021-06-06] MEDS ORDERED: SELENIUM IV SCH (17:00)
[2021-06-06] MEDS: SIMVASTATIN 20 MG TABLET PO SCH (20:41)
[2021-06-07] MEDS: VANCOMYCIN 50 MG/ML 60 ML/BOTTLE PER TUBE SCH ×3 (00:05→12:31)
[2021-06-07] MEDS: DEXTROSE 5% 1,000 ML IV SCH (01:08)
[2021-06-07 04:36] LABS: ABG HCO3 19.2 MMOL/L (20-26); ABG Oxygen Saturation 98.8 % (95-100); ABG PCO2 42.1 MM HG (35-48); ABG PH 7.278 (7.35-7.45); ABG PO2 238.3 MM HG (80-95); ABG TCO2 20.5 MMOL/L (23-27)
[2021-06-07 05:07] LABS: Basophils % 0.8 % (0.0-0.8); Hematocrit 33.9 VOL% (42.0-52.0); Hemoglobin 10.3 GM/DL (14.0-18.0); Immature Granulocytes % 1.5 %; Immature Granulocytes Absolute 0.04 #; Lymphocytes # 0.1 10*3/uL (1.4-4.0); Lymphocytes % 4.5 % (21.2-54.2); Mean Corpuscular HGB Conc 30.4 GM/DL (32-36); Mean Corpuscular Volume 93.4 FL (87-102); Mean Platelet Volume 11.6 FL (9.6-12.0); Monocytes % 1.1 % (1.7-12.7); Neutrophils % 92.1 % (38.7-73.9); Platelet Count 51 T/CUMM (130-400); Red Blood Count 3.63 MC/CUMM (3.8-5.5); Red Cell Distribution Width 14.6 % (9.3-17.3); White Blood Count 2.7 T/CUMM (4-12)
[2021-06-07 05:33] LABS: Band Neutrophils 1 % (0-10); Burr Cells Slight; Hypochromia 1+; Lymphocytes 3 % (20-55); Microcytosis 1+; Segmented Neutrophils 96 % (50-85); Total Cells Counted 100
[2021-06-07 05:34] LABS: Platelet Estimate Decreased
[2021-06-07] MEDS: INSULIN REGULAR 100 UNIT/ML SUBCUT SCH ×3 (06:00→18:16)
[2021-06-07] MEDS: LEVOTHYROXINE 75 MCG TABLET PO SCH (06:16)
[2021-06-07] MEDS: ALBUTEROL/IPRATROPIUM 3 ML NEB RESP TX SCH ×4 (07:07→19:10)
[2021-06-07] MEDS: DORNASE ALFA 2.5 MG/2.5 ML VIAL RESP TX SCH ×2 (07:08→19:10)
[2021-06-07 08:18] LABS: Alanine Aminotransferase 12 U/L (16-61); Albumin 1.2 G/DL (3.4-5.0); Alkaline Phosphatase 48 U/L (45-117); Aspartate Amino Transferase 13 U/L (0-37); Bilirubin,Total < 0.39 MG/DL (0.20-1.00); Blood Urea Nitrogen 124 MG/DL (7-18); Carbon Dioxide 19 MMOL/L (21-32); Estimated Glom Filtration Rate 18 ML/MIN; Glucose 404 MG/DL (74-106); Osmolality,Calculated 344.7 MOS/KG (273-304); Potassium 4.4 MMOL/L (3.5-5.1); Sodium 145 MMOL/L (136-145); Total Protein 4.8 G/DL (6.4-8.2)
[2021-06-07] MEDS: PANTOPRAZOLE 40 MG VIAL IV SCH ×2 (09:56→21:31)
[2021-06-07] MEDS: ASPIRIN CHEW 81 MG TABLET PO SCH (09:57)
[2021-06-07] MEDS: methylPREDNISolone SOD SUC 125 MG/2 ML VIAL IV SCH ×2 (09:57→21:30)
[2021-06-07] MEDS: CHOLESTYRAMINE/ASPARTAME 4 GM PACK PO SCH ×2 (09:57→21:30)
[2021-06-07] MEDS: CLOPIDOGREL 75 MG TABLET PO SCH (09:57)
[2021-06-07] MEDS: MONTELUKAST 10 MG TABLET PO SCH (09:57)
[2021-06-07] MEDS: DESITIN 4OZ/NYSTATIN 15 GRAM MIXTURE PASTE TOP SCH ×2 (09:58→21:32)
[2021-06-07 12:51] LABS: ABG Base Excess -7.1 MMOL/L (-2.5-2.5); ABG HCO3 19.1 MMOL/L (20-26); ABG Oxygen Saturation 98.8 % (95-100); ABG PCO2 41.4 MM HG (35-48); ABG PH 7.282 (7.35-7.45); ABG TCO2 20.4 MMOL/L (23-27)
[2021-06-07] MEDS: FAT EMULSION 20% 250 ML IV SCH (15:09)
[2021-06-07] MEDS: VANCOMYCIN INJ 500 MG, SODIUM CHLORIDE 0.9% 100 ML RECTAL SCH ×2 (15:19→21:29)
[2021-06-07] MEDS ORDERED: MULTIVITAMIN IV SCH ×2 (17:00)
[2021-06-07] MEDS ORDERED: AMINO ACIDS 10% IV SCH (17:00)
[2021-06-07] MEDS ORDERED: ZINC IV SCH ×2 (17:00)
[2021-06-07] MEDS ORDERED: SELENIUM IV SCH ×2 (17:00)
[2021-06-07] MEDS ORDERED: COPPER IV SCH ×2 (17:00)
[2021-06-07] MEDS ORDERED: DEXTROSE 30% IV SCH (17:00)
[2021-06-07] MEDS ORDERED: MANGANESE IV SCH ×2 (17:00)
[2021-06-07] MEDS ORDERED: [UNRECOGNIZED DRUG - OTHER] IV SCH ×2 (17:00)
[2021-06-07] MEDS: MORPHINE 2 MG/1 ML SYRINGE IV PRN (21:29)
[2021-06-07] MEDS: SIMVASTATIN 20 MG TABLET PO SCH (21:31)
[2021-06-08] MEDS: ALBUTEROL/IPRATROPIUM 3 ML NEB RESP TX SCH ×4 (00:17→19:18)
[2021-06-08] MEDS: INSULIN REGULAR 100 UNIT/ML SUBCUT SCH ×4 (00:23→17:35)
[2021-06-08 03:15] LABS: ABG Base Excess -7.8 MMOL/L (-2.5-2.5); ABG Oxygen Saturation 98.8 % (95-100); ABG PCO2 44.6 MM HG (35-48); ABG PH 7.248 (7.35-7.45); ABG TCO2 20.4 MMOL/L (23-27)
[2021-06-08] MEDS: VANCOMYCIN INJ 500 MG, SODIUM CHLORIDE 0.9% 100 ML RECTAL SCH ×4 (03:32→21:15)
[2021-06-08 03:39] LABS: Basophils % 0.3 % (0.0-0.8); Hematocrit 39.4 VOL% (42.0-52.0); Hemoglobin 11.8 GM/DL (14.0-18.0); Immature Granulocytes % 0.3 %; Immature Granulocytes Absolute 0.01 #; Lymphocytes # 0.1 10*3/uL (1.4-4.0); Lymphocytes % 3.4 % (21.2-54.2); Mean Corpuscular HGB Conc 29.9 GM/DL (32-36); Mean Corpuscular Volume 95.2 FL (87-102); Mean Platelet Volume 12.3 FL (9.6-12.0); Monocytes % 1.4 % (1.7-12.7); Neutrophils % 94.6 % (38.7-73.9); Platelet Count 48 T/CUMM (130-400); Red Blood Count 4.14 MC/CUMM (3.8-5.5); Red Cell Distribution Width 14.6 % (9.3-17.3)
[2021-06-08] MEDS: MIDAZOLAM 100 MG in SODIUM CHLORIDE 0.9% 80 ML IV PRN (03:40)
[2021-06-08 04:00] LABS: Alanine Aminotransferase < 6 U/L (16-61); Albumin 1.2 G/DL (3.4-5.0); Alkaline Phosphatase 54 U/L (45-117); Aspartate Amino Transferase 9 U/L (0-37); Bilirubin,Total < 0.39 MG/DL (0.20-1.00); Blood Urea Nitrogen 139 MG/DL (7-18); Calcium 7.5 MG/DL (8.5-10.1); Calcium 7.7 MG/DL (8.5-10.1); Carbon Dioxide 21 MMOL/L (21-32); Estimated Glom Filtration Rate 17 ML/MIN; Glucose 293 MG/DL (74-106); Osmolality,Calculated 343.4 MOS/KG (273-304); Osmolality,Calculated 345.6 MOS/KG (273-304); Potassium 4.3 MMOL/L (3.5-5.1); Sodium 146 MMOL/L (136-145); Total Protein 5.1 G/DL (6.4-8.2)
[2021-06-08 04:02] LABS: Band Neutrophils 3 % (0-10); Hypochromia Slight; Lymphocytes 3 % (20-55); Microcytosis Slight; Platelet Estimate Decreased; Segmented Neutrophils 93 % (50-85); Total Cells Counted 100
[2021-06-08] MEDS: LEVOTHYROXINE 75 MCG TABLET PO SCH (06:40)
[2021-06-08] MEDS: DORNASE ALFA 2.5 MG/2.5 ML VIAL RESP TX SCH ×2 (07:21→19:18)
[2021-06-08] MEDS: PANTOPRAZOLE 40 MG VIAL IV SCH ×2 (09:05→21:13)
[2021-06-08] MEDS: methylPREDNISolone SOD SUC 125 MG/2 ML VIAL IV SCH ×2 (09:05→21:33)
[2021-06-08] MEDS: MONTELUKAST 10 MG TABLET PO SCH (09:10)
[2021-06-08] MEDS: CLOPIDOGREL 75 MG TABLET PO SCH (09:10)
[2021-06-08] MEDS: CHOLESTYRAMINE/ASPARTAME 4 GM PACK PO SCH ×2 (09:10→21:14)
[2021-06-08] MEDS: ASPIRIN CHEW 81 MG TABLET PO SCH (09:10)
[2021-06-08] MEDS: MORPHINE 2 MG/1 ML SYRINGE IV PRN (11:15)
[2021-06-08] MEDS: DESITIN 4OZ/NYSTATIN 15 GRAM MIXTURE PASTE TOP SCH ×2 (11:30→21:15)
[2021-06-08] MEDS: [UNRECOGNIZED DRUG - OTHER] IV SCH (16:50)
[2021-06-08] MEDS: FAT EMULSION 20% 250 ML IV SCH (16:50)
[2021-06-08] MEDS: COPPER IV SCH (16:50)
[2021-06-08] MEDS: MULTIVITAMIN IV SCH (16:50)
[2021-06-08] MEDS: SELENIUM IV SCH (16:50)
[2021-06-08] MEDS: ZINC IV SCH (16:50)
[2021-06-08] MEDS: MANGANESE IV SCH (16:50)
[2021-06-08] MEDS ORDERED: DEXTROSE IV SCH (17:00)
[2021-06-08] MEDS ORDERED: AMINO ACIDS IV SCH (17:00)
[2021-06-08] MEDS: SIMVASTATIN 20 MG TABLET PO SCH (21:14)
[2021-06-09] MEDS: INSULIN REGULAR 100 UNIT/ML SUBCUT SCH ×4 (00:33→18:05)
[2021-06-09] MEDS: ALBUTEROL/IPRATROPIUM 3 ML NEB RESP TX SCH ×4 (00:58→19:00)
[2021-06-09] MEDS: VANCOMYCIN INJ 500 MG, SODIUM CHLORIDE 0.9% 100 ML RECTAL SCH ×4 (02:48→20:32)
[2021-06-09 05:27] LABS: ABG Base Excess -10.4 MMOL/L (-2.5-2.5); ABG HCO3 16.1 MMOL/L (20-26); ABG Oxygen Saturation 99.3 % (95-100); ABG PCO2 43.3 MM HG (35-48); ABG TCO2 16.3 MMOL/L (23-27)
[2021-06-09 05:29] LABS: ABG PH 7.204 (7.35-7.45)
[2021-06-09 05:48] LABS: Calcium 7.5 MG/DL (8.5-10.1); Osmolality,Calculated 348.1 MOS/KG (273-304); Potassium 4.5 MMOL/L (3.5-5.1)
[2021-06-09 06:18] LABS: Alanine Aminotransferase < 6 U/L (16-61); Albumin 1.2 G/DL (3.4-5.0); Alkaline Phosphatase 55 U/L (45-117); Aspartate Amino Transferase 10 U/L (0-37); Blood Urea Nitrogen 155 MG/DL (7-18); Calcium 7.4 MG/DL (8.5-10.1); Carbon Dioxide 18 MMOL/L (21-32); Estimated Glom Filtration Rate 16 ML/MIN; Glucose 428 MG/DL (74-106); Potassium 4.5 MMOL/L (3.5-5.1); Sodium 143 MMOL/L (136-145); Total Protein 4.5 G/DL (6.4-8.2)
[2021-06-09] MEDS: LEVOTHYROXINE 75 MCG TABLET PO SCH (06:21)
[2021-06-09 06:45] LABS: Basophils % 0.5 % (0.0-0.8); Hematocrit 42.5 VOL% (42.0-52.0); Immature Granulocytes % 0.5 %; Immature Granulocytes Absolute 0.01 #; Lymphocytes # 0.1 10*3/uL (1.4-4.0); Lymphocytes % 4.7 % (21.2-54.2); Mean Corpuscular HGB Conc 30.1 GM/DL (32-36); Mean Corpuscular Volume 93.8 FL (87-102); Mean Platelet Volume 12.1 FL (9.6-12.0); Neutrophils % 93.3 % (38.7-73.9); Red Blood Count 4.53 MC/CUMM (3.8-5.5); Red Cell Distribution Width 14.6 % (9.3-17.3); White Blood Count 1.9 T/CUMM (4-12)
[2021-06-09 06:47] LABS: Hemoglobin 12.8 GM/DL (14.0-18.0); Platelet Count 25 T/CUMM (130-400)
[2021-06-09 06:54] LABS: Band Neutrophils 6 % (0-10); Hypochromia Slight; Lymphocytes 3 % (20-55); Segmented Neutrophils 91 % (50-85); Total Cells Counted 100
[2021-06-09 06:55] LABS: Microcytosis Slight; Ovalocytes Slight; Platelet Estimate Decreased
[2021-06-09] MEDS: DORNASE ALFA 2.5 MG/2.5 ML VIAL RESP TX SCH ×2 (07:36→19:00)
[2021-06-09] MEDS: MIDAZOLAM 100 MG in SODIUM CHLORIDE 0.9% 80 ML IV PRN (07:50)
[2021-06-09] MEDS ORDERED: SODIUM BICARBONATE 50 MEQ/50 ML VIAL IV ONE (07:51)
[2021-06-09 09:14] LABS: ABG Base Excess -6.7 MMOL/L (-2.5-2.5); ABG HCO3 18.9 MMOL/L (20-26); ABG Oxygen Saturation 99.3 % (95-100); ABG PCO2 48.5 MM HG (35-48); ABG PH 7.237 (7.35-7.45); ABG TCO2 19.6 MMOL/L (23-27)
[2021-06-09] MEDS: hydrALAZINE 25 MG TABLET PO SCH ×3 (09:30→20:24)
[2021-06-09] MEDS: MONTELUKAST 10 MG TABLET PO SCH (09:30)
[2021-06-09] MEDS: ASPIRIN CHEW 81 MG TABLET PO SCH (09:30)
[2021-06-09] MEDS: CHOLESTYRAMINE/ASPARTAME 4 GM PACK PO SCH ×2 (09:30→21:39)
[2021-06-09] MEDS: CLOPIDOGREL 75 MG TABLET PO SCH (09:30)
[2021-06-09] MEDS: methylPREDNISolone SOD SUC 125 MG/2 ML VIAL IV SCH ×2 (09:30→21:40)
[2021-06-09] MEDS: carvediloL 3.125 MG TABLET PO SCH ×2 (09:30→20:24)
[2021-06-09] MEDS: PANTOPRAZOLE 40 MG VIAL IV SCH ×2 (10:15→20:23)
[2021-06-09] MEDS: MORPHINE 2 MG/1 ML SYRINGE IV PRN (11:30)
[2021-06-09] MEDS: DESITIN 4OZ/NYSTATIN 15 GRAM MIXTURE PASTE TOP SCH ×2 (11:45→20:32)
[2021-06-09] MEDS: [UNRECOGNIZED DRUG - OTHER] IV SCH (15:00)
[2021-06-09] MEDS: MULTIVITAMIN IV SCH (15:00)
[2021-06-09] MEDS: ZINC IV SCH (15:00)
[2021-06-09] MEDS: SELENIUM IV SCH (15:00)
[2021-06-09] MEDS: FAT EMULSION 20% 250 ML IV SCH (15:00)
[2021-06-09] MEDS: MANGANESE IV SCH (15:00)
[2021-06-09] MEDS: COPPER IV SCH (15:00)
[2021-06-09] MEDS ORDERED: MANGANESE IV SCH (17:00)
[2021-06-09] MEDS ORDERED: [UNRECOGNIZED DRUG - OTHER] IV SCH (17:00)
[2021-06-09] MEDS ORDERED: ZINC IV SCH (17:00)
[2021-06-09] MEDS ORDERED: SELENIUM IV SCH (17:00)
[2021-06-09] MEDS ORDERED: COPPER IV SCH (17:00)
[2021-06-09] MEDS ORDERED: MULTIVITAMIN IV SCH (17:00)
[2021-06-09] MEDS: SIMVASTATIN 20 MG TABLET PO SCH (20:24)
[2021-06-10] MEDS: INSULIN REGULAR 100 UNIT/ML SUBCUT SCH ×3 (00:14→12:00)
[2021-06-10] MEDS: ALBUTEROL/IPRATROPIUM 3 ML NEB RESP TX SCH (01:00)
[2021-06-10] MEDS: VANCOMYCIN INJ 500 MG, SODIUM CHLORIDE 0.9% 100 ML RECTAL SCH ×2 (03:38→09:00)
[2021-06-10 03:55] LABS: ABG Base Excess -9.1 MMOL/L (-2.5-2.5); ABG PCO2 48.5 MM HG (35-48)
[2021-06-10 04:02] LABS: Hematocrit 24.7 VOL% (42.0-52.0); Immature Granulocytes % 0.4 %; Immature Granulocytes Absolute 0.01 #; Lymphocytes # 0.1 10*3/uL (1.4-4.0); Lymphocytes % 4.6 % (21.2-54.2); Mean Corpuscular HGB Conc 29.6 GM/DL (32-36); Mean Corpuscular Volume 95.7 FL (87-102); Mean Platelet Volume 12.1 FL (9.6-12.0); Monocytes % 1.3 % (1.7-12.7); Neutrophils % 93.7 % (38.7-73.9); Red Cell Distribution Width 14.5 % (9.3-17.3); White Blood Count 2.4 T/CUMM (4-12)
[2021-06-10 04:03] LABS: ABG PH 7.192 (7.35-7.45); Hemoglobin 7.3 GM/DL (14.0-18.0); Red Blood Count 2.58 MC/CUMM (3.8-5.5)
[2021-06-10 04:04] LABS: Platelet Count 59 T/CUMM (130-400)
[2021-06-10] MEDS: MIDAZOLAM 100 MG in SODIUM CHLORIDE 0.9% 80 ML IV PRN (04:15)
[2021-06-10 04:20] LABS: Albumin 1.3 G/DL (3.4-5.0); Bilirubin,Total 0.4 MG/DL (0.20-1.00); Calcium 7.4 MG/DL (8.5-10.1); Osmolality,Calculated 350.1 MOS/KG (273-304); Potassium 4.5 MMOL/L (3.5-5.1); Total Protein 5.2 G/DL (6.4-8.2)
[2021-06-10 04:30] LABS: Band Neutrophils 5 % (0-10); Lymphocytes 4 % (20-55); Metamyelocytes 1 %; Myelocytes 1 %; Segmented Neutrophils 86 % (50-85); Total Cells Counted 100
[2021-06-10 04:31] LABS: Hypochromia 2+; Platelet Estimate Decreased
[2021-06-10] MEDS: PANTOPRAZOLE 40 MG VIAL IV SCH (08:15)
[2021-06-10] MEDS: methylPREDNISolone SOD SUC 125 MG/2 ML VIAL IV SCH (08:15)
[2021-06-10] MEDS: ASPIRIN CHEW 81 MG TABLET PO SCH (08:20)
[2021-06-10] MEDS: CLOPIDOGREL 75 MG TABLET PO SCH (08:20)
[2021-06-10] MEDS: CHOLESTYRAMINE/ASPARTAME 4 GM PACK PO SCH (08:20)
[2021-06-10] MEDS: MONTELUKAST 10 MG TABLET PO SCH (08:20)
[2021-06-10] MEDS: hydrALAZINE 25 MG TABLET PO SCH (08:20)
[2021-06-10] MEDS: LEVOTHYROXINE 75 MCG TABLET PO SCH (08:20)
[2021-06-10] MEDS: carvediloL 3.125 MG TABLET PO SCH (08:20)
[2021-06-10] MEDS: NOREPINEPHRINE 16 MG in SODIUM CHLORIDE 0.9% 234 ML IV PRN (08:45)
[2021-06-10] MEDS: DESITIN 4OZ/NYSTATIN 15 GRAM MIXTURE PASTE TOP SCH (09:00)
[2021-06-10 09:10] LABS: Basophils % 0.5 % (0.0-0.8); Hematocrit 24.7 VOL% (42.0-52.0); Hemoglobin 7.5 GM/DL (14.0-18.0); Immature Granulocytes % 0.9 %; Immature Granulocytes Absolute 0.02 #; Lymphocytes # 0.1 10*3/uL (1.4-4.0); Mean Corpuscular HGB Conc 30.4 GM/DL (32-36); Mean Corpuscular Volume 95.7 FL (87-102); Mean Platelet Volume 12.3 FL (9.6-12.0); Monocytes % 2.3 % (1.7-12.7); Neutrophils % 91.3 % (38.7-73.9); Platelet Count 64 T/CUMM (130-400); Red Blood Count 2.58 MC/CUMM (3.8-5.5); Red Cell Distribution Width 14.4 % (9.3-17.3); White Blood Count 2.2 T/CUMM (4-12)
[2021-06-10 09:31] LABS: ABG Base Excess -10.8 MMOL/L (-2.5-2.5); ABG HCO3 17.3 MMOL/L (20-26); ABG Oxygen Saturation 97.2 % (95-100); ABG PCO2 49.7 MM HG (35-48); ABG PO2 108.3 MM HG (80-95); ABG TCO2 18.8 MMOL/L (23-27)
[2021-06-10 09:42] LABS: Band Neutrophils 7 % (0-10); Lymphocytes 7 % (20-55); Segmented Neutrophils 80 % (50-85); Total Cells Counted 100
[2021-06-10 09:44] LABS: Hypochromia 1+; Microcytosis Slight
[2021-06-10 09:45] LABS: Ovalocytes Slight; Platelet Estimate Decreased
[2021-06-10] MEDS ORDERED: LORazepam 2 MG/1 ML VIAL ONE (10:56)
[2021-06-10] MEDS ORDERED: LORazepam 2 MG/1 ML VIAL IV PRN (10:56)
[2021-06-10] MEDS ORDERED: MORPHINE 2 MG/1 ML SYRINGE IV PRN (10:57)
[2021-06-10] MEDS: MORPHINE 2 MG/1 ML SYRINGE IV PRN (11:05)
[2021-06-10 13:03] VITALS: BP 147/43
== END 2021-06-10 11:18 | disposition expired | DRG 246 ==
LOC: N.ED 09:19 → SUATTDRO 10:52 → N.ICU 10:52
PROVIDERS: ADMIT Family Medicine; ATTEND Internal Medicine
PROC: CLCCHCL (ICD-10-PCS; 2021-05-29 16:15)